=== PATIENT | female | born 1945 | race Native Hawaiian/Other Pacific Islander ===

== ENCOUNTER 2016-08-21 13:53 | Outpatient (CLI) | payer MEDICARE, MEDICAID | END 2016-08-21 13:54 | disposition home or self-care (01) | DX: G47.33 Obstructive sleep apnea (adult) (pediatric) (principal) | CPT/HCPCS: 99213; G0463 ==

== ENCOUNTER 2016-11-06 16:11 | Outpatient (CLI) | payer MEDICARE, MEDICAID | END 2016-11-06 16:12 | disposition home or self-care (01) | DX: M17.11 Unilateral primary osteoarthritis, right knee (principal) ==

== ENCOUNTER 2017-01-21 14:26 | Outpatient (CLI) | payer MEDICARE, MEDICAID | END 2017-01-21 14:27 | disposition home or self-care (01) | LOC: SC 14:26 | PROVIDERS: ATTEND Internal Medicine Pulmonary Disease | DX: G47.33 Obstructive sleep apnea (adult) (pediatric) (principal) | CPT/HCPCS: 99213; G0463; 99212 ==

== ENCOUNTER 2017-02-08 19:56 | Outpatient (CLI) | payer MEDICARE, MEDICAID ==
--- NOTE | 2017-02-08 21:24 | Ultrasound Preliminary Report ---
Exam: US Abdomen Complete IMPRESSION: 1. No acute abnormalities. 2. Mild fatty change in the liver with stable superficial cyst, medial left lobe. 3. Atrophic [place] kidneys with unremarkable right lower quadrant renal transplant. [facility] SITE ID: [id number]
--- NOTE | 2017-02-08 21:25 | Ultrasound Report ---
EXAM: ABDOMEN ULTRASOUND EXAM DATE: 02/08/2017 08:37 PM. CLINICAL HISTORY: Abdominal distention and bloating. COMPARISON: 02/16/2014. TECHNIQUE: Real-time scanning was performed with static images obtained. FINDINGS: Liver: Normal in size. Mildly echogenic echotexture. Superficial cyst, medial left lobe, 1.9 x 1.5 x 1.3 cm. 12.3 cm. Main portal vein flow: Hepatopetal. Gallbladder: Normal. No stones, wall thickening, or sonographic Alexander's sign. Biliary System: Common bile duct measures 6 mm. No intrahepatic or extrahepatic ductal dilatation. Pancreas: Visualized portion is unremarkable. Kidneys: Right: 7.5 cm longitudinally. Atrophic with echogenic cortex. Left: 7.9 cm longitudinally. Atrophic with echogenic cortex. Lateral cyst measures 3.1 x 2.3 x 2.9 cm . Right lower quadrant transplant: 10.7 x 5.0 x 5.1 cm, with no hydronephrosis. Spleen: 8.4 x 8.1 x 4.3 cm. Normal in size and echotexture. Aorta and Inferior Vena Cava: The visualized portions are unremarkable. No free fluid. IMPRESSION: 1. No acute abnormalities. 2. Mild fatty change in the liver with stable superficial cyst, medial left lobe. 3. Atrophic [place] kidneys with unremarkable right lower quadrant renal transplant. [facility] Referring Provider Line: [phone] SITE ID: [id number]
== END 2017-02-08 19:57 | disposition home or self-care (01) ==
LOC: DI 19:56
PROVIDERS: ATTEND Internal Medicine Nephrology
DX: K76.0 Fatty (change of) liver, not elsewhere classified (principal); N26.1 Atrophy of kidney (terminal); Q61.01 Congenital single renal cyst; Z94.0 Kidney transplant status
CPT/HCPCS: 76700

== ENCOUNTER 2017-02-26 13:14 | Outpatient (CLI) | payer MEDICARE, MEDICAID | END 2017-02-26 13:15 | disposition home or self-care (01) | LOC: SC 13:14 | PROVIDERS: ATTEND Internal Medicine Pulmonary Disease | DX: G47.33 Obstructive sleep apnea (adult) (pediatric) (principal) | CPT/HCPCS: 99213; G0463; 99212 ==

== ENCOUNTER 2017-10-07 20:16 | Outpatient (CLI) | payer MEDICARE, MEDICAID | END 2017-10-07 23:59 | disposition critical access hospital (66) | LOC: EMS 20:16 | PROVIDERS: ATTEND Surgery | DX: R03.0 Elevated blood-pressure reading, without diagnosis of hypertension (principal); R06.02 Shortness of breath; R14.0 Abdominal distension (gaseous) | CPT/HCPCS: A0425; A0429 ==

== ENCOUNTER 2017-10-07 20:47 | Emergency (ER) | payer MEDICARE, MEDICAID ==
--- NOTE | 2017-10-07 22:14 | ED Physician Documentation ---
History of Present Illness - Stated complaint Stated Complaint: SOA - Chief complaint Chief Complaint: Resp - History obtained from History obtained from: Patient - History of Present Illness Timing: Today Pain level max: 0 Pain level now: 0 Improved by: no ameliorating factors Worsened by: no exacerbating factors - Additonal information Additional information: at about 8 pm, noted blood pressure was 199/107 tonight (was taking this as a routine). she then noted abdominal bloating, belly felt very heavy...bloated...hard time breathing (per patient). Review of Systems Constitutional: reports: Reviewed and negative Eyes: reports: Reviewed and negative Cardiac: reports: Reviewed and negative Respiratory: reports: Dyspnea. denies: Cough GI: reports: Abdominal Swelling. denies: Abdominal Pain, Nausea, Vomiting, Constipation, Diarrhea : denies: Dysuria, Frequency Neurologic: reports: Reviewed and negative PD PAST MEDICAL HISTORY - Past Medical History Cardiovascular: Hypertension, High cholesterol : Renal insuffiency Musculoskeletal: Gout Other Past Medical History: Kidney transplant - Past Surgical History Past Surgical History: Yes - Present Medications Home Medications: Ambulatory Orders Medication Instructions Recorded Confirmed Aspirin [Aspir 81] 81 mg PO DAILY 03/06/13 02/06/16 Mycophenolate Sodium [Myfortic] 180 mg PO BID 03/06/13 02/06/16 PredniSONE [PredniSONE INTENSOL] 5 mg PO DAILY 03/06/13 02/06/16 Tacrolimus [Hecoria] 0.5 mg PO DAILY 03/06/13 02/06/16 Carvedilol 25 mg PO BID 10/09/13 02/06/16 Allopurinol 300 mg PO DAILY 12/13/14 02/06/16 Pravastatin Sodium 20 mg PO QPM 12/13/14 02/06/16 Losartan [Cozaar] 50 mg PO DAILY 12/26/15 02/06/16 hydrALAZINE [Apresoline] 50 mg PO BID 12/26/15 02/06/16 Ciprofloxacin HCl [Cipro] 500 mg PO BID PRN 02/05/16 02/05/16 Doxazosin [Cardura] 5 mg BID 02/05/16 02/05/16 Carvedilol [Coreg] 25 mg PO DAILY 10/07/17 10/07/17 Doxazosin [Cardura] 4 mg PO DAILY 10/07/17 10/07/17 Losartan [Cozaar] 100 mg PO DAILY 10/07/17 10/07/17 Mycophenolate Sodium [Myfortic] 180 mg PO DAILY 10/07/17 10/07/17 Pravastatin [Pravachol] 20 mg PO DAILY 10/07/17 10/07/17 PredniSONE [PredniSONE INTENSOL] 5 mg PO DAILY 10/07/17 10/07/17 Tacrolimus [Prograf] 5 mg ORAL DAILY 10/07/17 10/07/17 hydrALAZINE [Apresoline] 25 mg PO QID 10/07/17 10/07/17 - Allergies Allergies/Adverse Reactions: Allergies Allergy/AdvReac Type Severity Reaction Status Date / Time Sulfa (Sulfonamide Allergy Mild Rash Verified 12/26/15 02:26 Antibiotics) - Social History Does the pt smoke?: No Smoking Status: Never smoker Does the pt drink ETOH?: No Does the pt have substance abuse?: No - Immunizations Immunizations are current?: Yes - POLST POLST Status: Full Code PD ED PE NORMAL - Vitals Vital signs reviewed: Yes - General General: Alert and oriented X 3, No acute distress, Well developed/nourished - HEENT HEENT: Moist mucous membranes - Neck Neck: Supple, no meningeal sign - Cardiac Cardiac: RRR, No murmur, No gallop, No rub - Respiratory Respiratory: No respiratory distress, Clear bilaterally - Abdomen Abdomen: Normal bowel sounds, Soft, Non tender, Non distended, No organomegaly - Back Back: No CVA TTP - Derm Derm: No rash - Extremities Extremities: No edema Results - Vitals Vitals: Oxygen O2 Source Room air - EKG (time done) No standard instances Rate: Rate (enter#) (70) Rhythm: NSR [place]: Normal Intervals: Normal [place] QRS: Normal Ischemia: Normal ST segments - Labs Labs: Microbiology 10/07/17 21:11 Urine Culture - Final Urine,Clean Catch Escherichia Coli Laboratory Tests 10/07/17 10/07/17 10/07/17 21:11 22:47 22:47 WBC 6.7 RBC 4.15 L Hgb 12.8 Hct 39.9 MCV 96.1 MCH 31.0 MCHC 32.2 RDW 13.7 Plt Count 182 MPV 8.6 Neut # 5.3 Lymph # 0.7 L [place] # 0.5 Eos # 0.1 Baso # 0.0 Absolute Nucleated RBC 0.01 Nucleated RBC % 0.1 Sodium 139 Potassium 4.2 Chloride 110 Carbon Dioxide 22 Anion Gap 7.0 BUN 29 H Creatinine 1.0 Estimated GFR (MDRD) 54 L Glucose 124 H Calcium 9.3 Total Bilirubin 0.4 AST 23 ALT 22 Alkaline Phosphatase 51 B-Natriuretic Peptide Total Protein 6.3 L Albumin 3.7 Globulin 2.6 Albumin/Globulin Ratio 1.4 Lipase 37 Urine Color LT. YELLOW Urine Clarity CLOUDY Urine pH 5.5 Ur Specific [place] <=1.005 Urine Protein NEGATIVE Urine Glucose (UA) NEGATIVE Urine Ketones NEGATIVE Urine Occult Blood NEGATIVE Urine Nitrite NEGATIVE Urine Bilirubin NEGATIVE Urine Urobilinogen 0.2 (NORMAL) Ur Leukocyte Esterase MODERATE H Urine RBC 0-5 Urine WBC 6-10 H Urine WBC Clumps PRESENT Ur Squamous Epith Cells FEW Squamous Urine Bacteria Few Ur Microscopic Review INDICATED Urine Culture Comments INDICATED 10/07/17 22:47 WBC RBC Hgb Hct MCV MCH MCHC RDW Plt Count MPV Neut # Lymph # [place] # Eos # Baso # Absolute Nucleated RBC Nucleated RBC % Sodium Potassium Chloride Carbon Dioxide Anion Gap BUN Creatinine Estimated GFR (MDRD) Glucose Calcium Total Bilirubin AST ALT Alkaline Phosphatase B-Natriuretic Peptide 215 H Total Protein Albumin Globulin Albumin/Globulin Ratio Lipase Urine Color Urine Clarity Urine pH Ur Specific [place] Urine Protein Urine Glucose (UA) Urine Ketones Urine Occult Blood Urine Nitrite Urine Bilirubin Urine Urobilinogen Ur Leukocyte Esterase Urine RBC Urine WBC Urine WBC Clumps Ur Squamous Epith Cells Urine Bacteria Ur Microscopic Review Urine Culture Comments - Rads (name of study) abd. series (xrays) Radiology: Prelim report reviewed, See rad report PD MEDICAL DECISION MAKING - ED course Complexity details: reviewed results, re-evaluated patient, considered differential, d/w patient Departure - Departure Disposition: 01 Home, Self Care Clinical Impression: Kidney transplant recipient, Hypertension Condition: Good Instructions: ED HTN Established Follow-Up: Vivek Lee MD [Primary Care Provider] - Discharge Date/Time: 10/08/17 04:32
[2017-10-07 22:41] LABS: BILIRUBIN,URINE NEGATIVE (NEGATIVE); GLUCOSE, URINE (UA) NEGATIVE (NEGATIVE); KETONES,URINE (UA) NEGATIVE (NEGATIVE); LEUKOCYTE ESTERASE, URINE MODERATE (NEGATIVE); NITRITE,URINE NEGATIVE (NEGATIVE); OCCULT BLOOD,URINE NEGATIVE (NEGATIVE); PH,URINE 5.5 PH (5.0-7.5); PROTEIN,URINE NEGATIVE (NEGATIVE); UROBILINOGEN,URINE 0.2 (NORMAL) E.U./dL (NORMAL)
[2017-10-07 22:42] LABS: CLARITY,URINE CLOUDY (CLEAR)
[2017-10-07 22:53] LABS: BACTERIA,URINE Few /HPF (None Seen); RBC,URINE 0-5 /HPF (0-5); SQUAMOUS EPITHELIAL CELL,UR FEW Squamous (<= Few); WBC CLUMPS,URINE PRESENT
[2017-10-07 22:55] LABS: BASOPHILS % (AUTO) 0.7 %; EOSINOPHILS # (AUTO) 0.1 10^3/uL (0.0-0.7); EOSINOPHILS % (AUTO) 1.5 %; HGB - HEMOGLOBIN 12.8 g/dL (12.0-16.0); LYMPHOCYTES # (AUTO) 0.7 10^3/uL (1.5-3.5); LYMPHOCYTES % (AUTO) 11.1 %; MEAN CORPUSCULAR HGB CONC 32.2 g/dL (32.0-36.0); MEAN CORPUSCULAR VOLUME 96.1 fL (81.0-99.0); MEAN PLATELET VOLUME 8.6 fL (7.9-10.8); MONOCYTES # (AUTO) 0.5 10^3/uL (0.0-1.0); MONOCYTES % (AUTO) 6.9 %; NEUTROPHILS # (AUTO) 5.3 10^3/uL (1.5-6.6); NEUTROPHILS % (AUTO) 79.8 %; PLT - PLATELET COUNT 182 10^3/uL (130-450); RED BLOOD COUNT 4.15 10^6/uL (4.20-5.40); RED CELL DISTRIBUTION WIDTH 13.7 % (12.0-15.0); WHITE BLOOD COUNT 6.7 x10^3/uL (4.8-10.8)
[2017-10-07 23:08] LABS: ALBUMIN 3.7 g/dL (3.2-5.5); ALBUMIN/GLOBULIN RATIO 1.4 (1.0-2.2); BILIRUBIN,TOTAL 0.4 mg/dL (0.2-1.0); CALCIUM 9.3 mg/dL (8.5-10.3); TOTAL PROTEIN 6.3 g/dL (6.7-8.2)
--- NOTE | 2017-10-07 23:16 | XRAY Report ---
EXAM: ABDOMINAL SERIES AND PA CHEST EXAM DATE: 10/07/2017 11:04 PM. CLINICAL HISTORY: Abdominal distention. COMPARISON: Chest 02/05/2016. TECHNIQUE: 2 views abdomen and 1 view chest. FINDINGS: Cardiomegaly. New right upper lobe 9 mm dense nodular opacity, could represent a new pulmon bharat nodule. Follow-up is recommended. No pleural effusion or pneumothorax. Nonobstructive nonspecific bowel gas pattern. Stool volume is within normal limits. No evidence for f ree air. IMPRESSION: New right upper lobe 9 mm dense nodular opacity, could represent a new pulmonary nodule. Follow-up is recommended. No acute abdominal findings seen. [facility] Referring Provider Line: [phone] SITE ID: [id number]
--- NOTE | 2017-10-07 23:16 | XRAY Preliminary Report ---
Exam: XR ABDOMEN ACUTE IMPRESSION: New right upper lobe 9 mm dense nodular opacity, could represent a new pulmonary nodule. Follow-up is recommended. No acute abdominal findings seen. [facility] SITE ID: [id number]
[2017-10-08 04:32] VITALS: BP 168/78
== END 2017-10-08 04:32 | disposition home or self-care (01) ==
LOC: EDUNIT# → SUPCPDRO 20:47 → ED 20:47
DX: I10 Essential (primary) hypertension (principal); R19.00 Intra-abdominal and pelvic swelling, mass and lump, unspecified site; E78.00 Pure hypercholesterolemia, unspecified; R94.31 Abnormal electrocardiogram [ECG] [EKG]; Z94.0 Kidney transplant status; Z79.82 Long term (current) use of aspirin
CPT/HCPCS: 36415; 74022; 80053; 81001; 81003; 83690; 83880; 85025; 87077; 87086; 93005; 99284

== ENCOUNTER 2018-03-03 23:58 | Outpatient (CLI) | payer MEDICARE, MEDICAID | END 2018-03-03 23:59 | disposition critical access hospital (66) | LOC: EMS 23:58 | PROVIDERS: ATTEND Surgery | DX: R10.9 Unspecified abdominal pain (principal) | CPT/HCPCS: A0425; A0429 ==

== ENCOUNTER 2018-03-04 00:14 | Emergency (ER) | payer MEDICARE, MEDICAID ==
[2018-03-04 00:55] LABS: BILIRUBIN,URINE NEGATIVE (NEGATIVE); GLUCOSE, URINE (UA) NEGATIVE (NEGATIVE); KETONES,URINE (UA) NEGATIVE (NEGATIVE); LEUKOCYTE ESTERASE, URINE SMALL (NEGATIVE); NITRITE,URINE NEGATIVE (NEGATIVE); OCCULT BLOOD,URINE NEGATIVE (NEGATIVE); PH,URINE 6.5 PH (5.0-7.5); PROTEIN,URINE NEGATIVE (NEGATIVE); UROBILINOGEN,URINE 0.2 (NORMAL) E.U./dL (NORMAL)
[2018-03-04 00:56] LABS: BASOPHILS # (AUTO) 0.1 10^3/uL (0.0-0.1); BASOPHILS % (AUTO) 1.8 %; EOSINOPHILS # (AUTO) 0.1 10^3/uL (0.0-0.7); EOSINOPHILS % (AUTO) 1.4 %; HGB - HEMOGLOBIN 13.9 g/dL (12.0-16.0); LYMPHOCYTES # (AUTO) 0.5 10^3/uL (1.5-3.5); LYMPHOCYTES % (AUTO) 7.4 %; MEAN CORPUSCULAR HEMOGLOBIN 32.5 pg (27.0-31.0); MEAN CORPUSCULAR HGB CONC 33.9 g/dL (32.0-36.0); MEAN CORPUSCULAR VOLUME 95.9 fL (81.0-99.0); MEAN PLATELET VOLUME 8.9 fL (7.9-10.8); MONOCYTES # (AUTO) 0.3 10^3/uL (0.0-1.0); MONOCYTES % (AUTO) 3.5 %; NEUTROPHILS # (AUTO) 6.2 10^3/uL (1.5-6.6); NEUTROPHILS % (AUTO) 85.9 %; PLT - PLATELET COUNT 171 10^3/uL (130-450); RED BLOOD COUNT 4.29 10^6/uL (4.20-5.40); RED CELL DISTRIBUTION WIDTH 13.3 % (12.0-15.0); WHITE BLOOD COUNT 7.3 x10^3/uL (4.8-10.8)
[2018-03-04 01:03] LABS: BACTERIA,URINE None Seen /HPF (None Seen); CLARITY,URINE CLEAR (CLEAR); RBC,URINE None Seen /HPF (0-5); SQUAMOUS EPITHELIAL CELL,UR NONE SEEN (<= Few)
[2018-03-04 01:07] LABS: ALBUMIN 3.6 g/dL (3.2-5.5); ALBUMIN/GLOBULIN RATIO 1.2 (1.0-2.2); BILIRUBIN,TOTAL 0.7 mg/dL (0.2-1.0); CALCIUM 9.2 mg/dL (8.5-10.3); TOTAL PROTEIN 6.7 g/dL (6.7-8.2)
--- NOTE | 2018-03-04 01:13 | ED Physician Documentation ---
History of Present Illness - Stated complaint Stated Complaint: SOA, NAUSEA, ABD DISTENDED - Chief complaint Chief Complaint: Cardiac - History obtained from History obtained from: Patient - History of Present Illness Timing: Enter time (21:00), Today Pain level now: 3 Improved by: no ameliorating factors Worsened by: dizziness is worse with movement, but other symptoms have no obvious exacerbating factors - Additonal information Additional information: c/o upper abdominal and lower chest discomfort, sensation of "bloating" (per patient). mild dizziness with ambulation and movement. Mild nausea but no vomiting. had similar symptoms in September, T+R from this ED at that time. Review of Systems Constitutional: reports: Reviewed and negative Cardiac: reports: Chest pain / pressure. denies: Palpitations, Pedal edema, Calf pain Respiratory: reports: Reviewed and negative GI: reports: Abdominal Pain, Nausea. denies: Vomiting, Constipation, Diarrhea : denies: Dysuria, Frequency Skin: reports: Reviewed and negative Musculoskeletal: reports: Reviewed and negative Neurologic: reports: Reviewed and negative PD PAST MEDICAL HISTORY - Past Medical History Past Medical History: Yes Cardiovascular: Hypertension, High cholesterol : Renal insuffiency Musculoskeletal: Gout - Past Surgical History Past Surgical History: Yes - Present Medications Home Medications: Ambulatory Orders Medication Instructions Recorded Confirmed Aspirin [Aspir 81] 81 mg PO DAILY 03/06/13 03/04/18 Mycophenolate Sodium [Myfortic] 180 mg PO BID 03/06/13 03/04/18 Allopurinol 300 mg PO DAILY 12/13/14 03/04/18 hydrALAZINE [Apresoline] 50 mg PO BID 12/26/15 03/04/18 Carvedilol [Coreg] 25 mg PO DAILY 10/07/17 03/04/18 Losartan [Cozaar] 100 mg PO DAILY 10/07/17 03/04/18 Pravastatin [Pravachol] 20 mg PO DAILY 10/07/17 03/04/18 PredniSONE [PredniSONE INTENSOL] 5 mg PO DAILY 10/07/17 03/04/18 Tacrolimus [Prograf] 5 mg ORAL BID 10/07/17 03/04/18 - Allergies Allergies/Adverse Reactions: Allergies Allergy/AdvReac Type Severity Reaction Status Date / Time Sulfa (Sulfonamide Allergy Mild Rash Verified 03/04/18 01:05 Antibiotics) - Social History Does the pt smoke?: No Smoking Status: Never smoker Does the pt drink ETOH?: No Does the pt have substance abuse?: No - Immunizations Immunizations are current?: Yes - POLST POLST Status: Full Code PD ED PE NORMAL - Vitals Vital signs reviewed: Yes - General General: Alert and oriented X 3, No acute distress, Well developed/nourished - HEENT HEENT: PERRL, EOMI, Moist mucous membranes - Cardiac Cardiac: RRR, No murmur - Respiratory Respiratory: No respiratory distress, Clear bilaterally - Abdomen Abdomen: Normal bowel sounds, Soft, Non tender, Non distended, No organomegaly - Back Back: No CVA TTP - Derm Derm: Normal color, Warm and dry, No rash - Extremities Extremities: No edema - Neuro Neuro: Alert and oriented X 3, team automobile assembler 2-12 intact, No motor deficit, No sensory deficit, Normal speech Eye Opening: Spontaneous Motor: Obeys Commands Verbal: Oriented GCS Score: 15 Results - Vitals Vitals: Vital Signs - 24 hr 03/04/18 03/04/18 03/04/18 00:15 00:53 01:01 Temperature 36.2 C L Heart Rate 75 80 75 Respiratory 18 23 16 Rate Blood Pressure 163/74 H 167/74 H 159/93 H Blood Pressure 159/93 H [Left] O2 Saturation 96 97 97 03/04/18 03/04/18 03/04/18 01:40 02:36 03:37 Temperature 36.4 C L 36.4 C L Heart Rate 67 74 72 Respiratory 16 14 16 Rate Blood Pressure 177/82 H 147/64 H 146/74 H Blood Pressure [Left] O2 Saturation 95 97 99 Oxygen O2 Source Room air - EKG (time done) No standard instances Rate: Rate (enter#) (75) Rhythm: NSR [place]: Normal Intervals: Normal [place] QRS: Normal Ischemia: Normal ST segments - Labs Labs: Microbiology 03/04/18 00:32 Urine Culture - Preliminary Urine,Clean Catch CULTURE IN PROGRESS. RESULTS TO FOLLOW. Laboratory Tests 03/04/18 03/04/18 03/04/18 00:32 00:40 00:40 WBC 7.3 RBC 4.29 Hgb 13.9 Hct 41.2 MCV 95.9 MCH 32.5 H MCHC 33.9 RDW 13.3 Plt Count 171 MPV 8.9 Neut # (Auto) 6.2 Lymph # (Auto) 0.5 L [place] # (Auto) 0.3 Eos # (Auto) 0.1 Baso # (Auto) 0.1 Absolute Nucleated RBC 0.00 Nucleated RBC % 0.0 Sodium 136 Potassium 4.1 Chloride 106 Carbon Dioxide 22 Anion Gap 8.0 BUN 28 H Creatinine 1.0 Estimated GFR (MDRD) 54 L Glucose 151 H Calcium 9.2 Total Bilirubin 0.7 AST 32 ALT 26 Alkaline Phosphatase 61 Troponin I Total Protein 6.7 Albumin 3.6 Globulin 3.1 Albumin/Globulin Ratio 1.2 Lipase 59 H Urine Color LT. YELLOW Urine Clarity CLEAR Urine pH 6.5 Ur Specific [place] <=1.005 Urine Protein NEGATIVE Urine Glucose (UA) NEGATIVE Urine Ketones NEGATIVE Urine Occult Blood NEGATIVE Urine Nitrite NEGATIVE Urine Bilirubin NEGATIVE Urine Urobilinogen 0.2 (NORMAL) Ur Leukocyte Esterase SMALL H Urine RBC None Seen Urine WBC 0-3 Ur Squamous Epith Cells NONE SEEN Urine Bacteria None Seen Ur Microscopic Review INDICATED Urine Culture Comments INDICATED 03/04/18 00:40 WBC RBC Hgb Hct MCV MCH MCHC RDW Plt Count MPV Neut # (Auto) Lymph # (Auto) [place] # (Auto) Eos # (Auto) Baso # (Auto) Absolute Nucleated RBC Nucleated RBC % Sodium Potassium Chloride Carbon Dioxide Anion Gap BUN Creatinine Estimated GFR (MDRD) Glucose Calcium Total Bilirubin AST ALT Alkaline Phosphatase Troponin I < 0.04 Total Protein Albumin Globulin Albumin/Globulin Ratio Lipase Urine Color Urine Clarity Urine pH Ur Specific [place] Urine Protein Urine Glucose (UA) Urine Ketones Urine Occult Blood Urine Nitrite Urine Bilirubin Urine Urobilinogen Ur Leukocyte Esterase Urine RBC Urine WBC Ur Squamous Epith Cells Urine Bacteria Ur Microscopic Review Urine Culture Comments - Rads (name of study) acute abd. xrays Radiology: Prelim report reviewed, See rad report PD MEDICAL DECISION MAKING - ED course Complexity details: reviewed old records, reviewed results, re-evaluated patient , considered differential, d/w patient ED course: given "GI cocktail" (maalox, viscous lidocaine, donnatol) and reported significant improvement in symptoms on reevaluation. - Sepsis Event Vital Signs: Vital Signs - 24 hr 03/04/18 03/04/18 03/04/18 00:15 00:53 01:01 Temperature 36.2 C L Heart Rate 75 80 75 Respiratory 18 23 16 Rate Blood Pressure 163/74 H 167/74 H 159/93 H Blood Pressure 159/93 H [Left] O2 Saturation 96 97 97 03/04/18 03/04/18 03/04/18 01:40 02:36 03:37 Temperature 36.4 C L 36.4 C L Heart Rate 67 74 72 Respiratory 16 14 16 Rate Blood Pressure 177/82 H 147/64 H 146/74 H Blood Pressure [Left] O2 Saturation 95 97 99 Oxygen O2 Source Room air Departure - Departure Disposition: 01 Home, Self Care Clinical Impression: Abdominal pain Qualifiers: Abdominal location: upper abdomen, unspecified Qualified Code(s): R10.10 - Upper abdominal pain, unspecified Condition: Good Instructions: ED Abdominal Pain Unkn Cause, ED Chest Pain Atypical Unkn Cause Follow-Up: Vivek Lee MD [Primary Care Provider] - Within 1 week Comments: You can try simethicone for the gas/bloating sensation (this is a common over- the-counter medication and does not require a prescription). I would also recommend you take omeprazole once per day for 1-2 weeks. Discharge Date/Time: 03/04/18 03:38
[2018-03-04] MEDS ORDERED: PHENobarb/HYOSCY/ATROPINE/SCOP 5 ML UDC PO STA (01:38)
[2018-03-04] MEDS ORDERED: MAG HYDROX/AL HYDROX/SIMETH 30 ML UDC PO STA (01:38)
[2018-03-04] MEDS ORDERED: LIDOCAINE VISCOUS 2% 15 ML UDC MM STA (01:39)
--- NOTE | 2018-03-04 03:03 | XRAY Report ---
Procedure Date: 03/04/2018 Accession Number: [id number] / [id number] Procedure: XR - Abdomen Acute CPT Code: FULL RESULT: EXAM: ABDOMINAL SERIES AND PA CHEST EXAM DATE: 03/04/2018 02:35 AM. CLINICAL HISTORY: Abdominal pain and distention. COMPARISON: ABDOMEN ACUTE 10/07/2017 CHEST 1 VIEW 02/05/2016. TECHNIQUE: 2 views abdomen and 1 view chest. FINDINGS: CHEST: Lungs/Pleura: Bronchial wall thickening. No alveolar consolidation or pleural effusion seen. No pneumothorax. Mediastinum: Within exam limitations, heart size is upper normal. Aortic atherosclerosis. ABDOMEN: Bowel Gas Pattern: No dilated loops or abnormal air-fluid levels. Free Air: None. Other: Postoperative changes in the abdomen. IMPRESSION: 1. No bowel obstruction seen. 2. Borderline heart size. 3. Bronchial wall thickening. This can be seen with bronchitis or reactive airways disease. [facility]
[2018-03-04 03:38] VITALS: BP 146/74
--- NOTE | 2018-03-08 08:06 | ED Physician Documentation ---
ED Addendum - Addendum Addendum: 03/08/18 08:05 Chart accessed for culture review. UA (+) culture e. coli (50K-100K). Recommend keflex 500mg PO TID x 5 days
== END 2018-03-04 03:38 | disposition home or self-care (01) ==
LOC: EDUNIT# → ED 00:14 → SUPCPDRO 00:14 → ED 03:38
DX: R10.10 Upper abdominal pain, unspecified (principal); I10 Essential (primary) hypertension; Z79.82 Long term (current) use of aspirin; Z79.52 Long term (current) use of systemic steroids; R91.8 Other nonspecific abnormal finding of lung field
CPT/HCPCS: 36415; 74022; 80053; 81001; 83690; 84484; 85025; 87086; 93005; 99283; 99285; A9270; 81003; 87181

== ENCOUNTER 2018-04-29 10:04 | Outpatient (CLI) | payer MEDICARE, MEDICAID | END 2018-04-29 10:05 | disposition home or self-care (01) | LOC: SC 10:04 | PROVIDERS: ATTEND Internal Medicine Pulmonary Disease | DX: G47.33 Obstructive sleep apnea (adult) (pediatric) (principal) | CPT/HCPCS: 99213; G0463; 99212 ==

== ENCOUNTER 2018-06-22 19:47 | Outpatient (CLI) | payer MEDICARE, MEDICAID | END 2018-06-22 19:48 | disposition critical access hospital (66) | LOC: EMS 19:47 | PROVIDERS: ATTEND Surgery | DX: R03.0 Elevated blood-pressure reading, without diagnosis of hypertension (principal); R06.02 Shortness of breath | CPT/HCPCS: A0425; A0429 ==

== ENCOUNTER 2018-06-22 20:06 | Emergency (ER) | payer MEDICARE, MEDICAID ==
--- NOTE | 2018-06-22 20:17 | ED Physician Documentation ---
PD HPI DYSPNEA - Stated complaint Stated Complaint: SOA/HTN - History obtained from History obtained from: Patient - History of Present Illness Timing - onset: Today (takes BP 3 times daily and noted it to be elevated highly this evening to 190s systolic. Feeling anxious and some dyspnea, upper abd bloating with it.) Timing - onset during: Rest Timing - duration: Hours (BP remained elevated for over an hour. Took extra dose of her BP med about an hour RESP THERAPIST.) Timing - details: Gradual onset, Still present Inciting event(s): No: Out of meds, URI Associated symptoms: Other (upper abd bloating feeling). No: Fever, Cough, Wheezing, Chest pain / discomfort Similar symptoms before: Diagnosis (HTN with elevations periodically) Recently seen: Not recently seen Review of Systems Constitutional: denies: Fever Nose: denies: Rhinorrhea / runny nose, Congestion Throat: denies: Sore throat Cardiac: reports: Pedal edema (if does not take diuetic). denies: Chest pain / pressure, Palpitations, Calf pain Respiratory: reports: Dyspnea. denies: Cough, Wheezing GI: denies: Abdominal Pain, Nausea, Vomiting, Diarrhea, Bloody / black stool : denies: Dysuria, Frequency Neurologic: reports: Generalized weakness. denies: Focal weakness, Numbness, Near syncope PD PAST MEDICAL HISTORY - Past Medical History Cardiovascular: Hypertension, High cholesterol : Renal insuffiency Musculoskeletal: Gout - Past Surgical History Past Surgical History: Yes - Present Medications Home Medications: Ambulatory Orders Medication Instructions Recorded Confirmed Aspirin [Aspir 81] 81 mg PO DAILY 03/06/13 03/04/18 Mycophenolate Sodium [Myfortic] 180 mg PO BID 03/06/13 03/04/18 Allopurinol 300 mg PO DAILY 12/13/14 03/04/18 hydrALAZINE [Apresoline] 50 mg PO BID 12/26/15 03/04/18 Carvedilol [Coreg] 25 mg PO DAILY 10/07/17 03/04/18 Losartan [Cozaar] 100 mg PO DAILY 10/07/17 03/04/18 Pravastatin [Pravachol] 20 mg PO DAILY 10/07/17 03/04/18 PredniSONE [PredniSONE INTENSOL] 5 mg PO DAILY 10/07/17 03/04/18 Tacrolimus [Prograf] 5 mg ORAL BID 10/07/17 03/04/18 Docusate Sodium 100 mg PO DAILY #30 capsule 06/22/18 Nitroglycerin 0.4 mg SL ONCE PRN #1 bottle 06/22/18 - Allergies Allergies/Adverse Reactions: Allergies Allergy/AdvReac Type Severity Reaction Status Date / Time Sulfa (Sulfonamide Allergy Mild Rash Verified 06/22/18 20:12 Antibiotics) - Social History Does the pt smoke?: No Smoking Status: Never smoker Does the pt drink ETOH?: No Does the pt have substance abuse?: No - Immunizations Immunizations are current?: Yes - POLST POLST Status: Full Code PD ED PE NORMAL - Vitals Vital signs reviewed: Yes - General General: Alert and oriented X 3, Well developed/nourished, Other (anxious) - HEENT HEENT: Pharynx benign - Neck Neck: Supple, no meningeal sign, No adenopathy, No JVD - Cardiac Cardiac: RRR, No murmur - Respiratory Respiratory: Clear bilaterally - Abdomen Abdomen: Soft, Non tender - Back Back: No CVA TTP - Derm Derm: Normal color, Warm and dry - Extremities Extremities: No deformity, No tenderness to palpate, Normal ROM s pain, No edema, No calf tenderness / cord - Neuro Neuro: Alert and oriented X 3, No motor deficit, No sensory deficit, Normal speech Eye Opening: Spontaneous Motor: Obeys Commands Verbal: Oriented GCS Score: 15 Results - Vitals Vitals: Vital Signs - 24 hr 06/22/18 06/22/18 06/23/18 20:14 22:07 00:34 Temperature 36.6 C Heart Rate 78 75 73 Respiratory 18 18 16 Rate Blood Pressure 175/80 H 184/98 H 147/71 H O2 Saturation 97 97 96 06/23/18 00:51 Temperature Heart Rate 102 H Respiratory 16 Rate Blood Pressure 115/73 O2 Saturation 96 Oxygen O2 Source Room air - EKG (time done) 20:13 Rate: Rate (enter#) (83) Rhythm: NSR [place]: Normal Intervals: Normal [place] QRS: Normal Ischemia: Normal ST segments. No: ST elevation c/w ischemia, ST depression - Labs Labs: Laboratory Tests 06/22/18 06/22/18 06/22/18 20:56 20:56 20:56 WBC 6.9 RBC 4.20 Hgb 13.4 Hct 40.3 MCV 95.9 MCH 31.9 H MCHC 33.3 RDW 13.5 Plt Count 152 MPV 8.2 Neut # (Auto) 5.3 Lymph # (Auto) 0.9 L [place] # (Auto) 0.6 Eos # (Auto) 0.1 Baso # (Auto) 0.1 Absolute Nucleated RBC 0.01 Nucleated RBC % 0.1 Sodium 136 Potassium 3.3 L Chloride 102 Carbon Dioxide 26 Anion Gap 8.0 BUN 27 H Creatinine 1.4 H Estimated GFR (MDRD) 37 L Glucose 121 H Calcium 8.9 Phosphorus 3.2 Magnesium 1.8 Total Bilirubin 0.6 AST 15 ALT 10 Alkaline Phosphatase 55 B-Natriuretic Peptide 129 H Total Protein 6.5 L Albumin 3.7 Globulin 2.8 Albumin/Globulin Ratio 1.3 Lipase 47 - Rads (name of study) chest Radiology: Prelim report reviewed (no acute) PD MEDICAL DECISION MAKING - ED course Complexity details: reviewed results, re-evaluated patient (still some anxious about BP going up again later, but was watched here awhile and it did not go up significantly. ), considered differential (she is very anxious about BP elevation. She says she feels upper abd bloating with it. Improved some with GI cocktail. Still with nausea after BP is lowering. She is cocnerned about BP spikes at times and had been told by her Electric Scoop Operator that an option could be PRN nitro, but had not had Rx as yet. ), d/w patient Departure - Departure Disposition: 01 Home, Self Care Clinical Impression: Elevated blood pressure reading, Abdominal bloating Hypertension Qualifiers: Hypertension type: secondary to other renal disorders Qualified Code(s): I15.1 - Hypertension secondary to other renal disorders Condition: Stable Record reviewed to determine appropriate education?: Yes Instructions: ED HTN Established Follow-Up: Vivek Lee MD [Primary Care Provider] - Jimbo Granados MD [Provider Admit Priv/Credential] - Prescriptions: Docusate Sodium 100 mg PO DAILY #30 capsule Nitroglycerin 0.4 mg SL ONCE PRN #1 bottle PRN Reason: Hypertensive Emergency Comments: Continue usual medications. Continue monitoring your blood pressure as you had been directed by your denier control operator and fig washer. If your blood pressure is very high and stays that way for an hour to then you could use the nitroglycerin as needed to get it to be a little bit lower at the time. Do not take it regularly. Follow-up with your fig washer and Dr. Granados regarding ongoing blood pressure management. For your stomach bloating, try docusate stool softener daily for the next several days to week and see if you are feeling better. Zofran if needed for nausea. Discharge Date/Time: 06/23/18 00:53
[2018-06-22] MEDS ORDERED: LIDOCAINE VISCOUS 2% 15 ML UDC MM STA (20:37)
[2018-06-22] MEDS ORDERED: MAG HYDROX/AL HYDROX/SIMETH 30 ML UDC PO STA (20:37)
--- NOTE | 2018-06-22 20:57 | XRAY Report ---
Reason: chest pain Procedure Date: 06/22/2018 Accession Number: [id number] / [id number] Procedure: XR - Chest 1 View X-Ray CPT Code: 86268 FULL RESULT: EXAM: CHEST RADIOGRAPHY EXAM DATE: 06/22/2018 08:48 PM. CLINICAL HISTORY: Chest pain. COMPARISON: CHEST 1 VIEW 02/05/2016 9:58 PM CHEST 2 VIEW PA/LAT 12/13/2014 11:57 AM. TECHNIQUE: 1 view. FINDINGS: Lungs/Pleura: No focal consolidation or evidence of edema. No pleural effusion or pneumothorax. Mediastinum: Unchanged borderline cardiomegaly. The aorta is mildly tortuous and contains atherosclerotic calcifications, as before. Other: The bones are unremarkable. IMPRESSION: Stable borderline cardiomegaly. No acute cardiopulmonary abnormality. [facility]
[2018-06-22 21:00] LABS: BASOPHILS # (AUTO) 0.1 10^3/uL (0.0-0.1); BASOPHILS % (AUTO) 0.9 %; EOSINOPHILS # (AUTO) 0.1 10^3/uL (0.0-0.7); EOSINOPHILS % (AUTO) 1.1 %; HGB - HEMOGLOBIN 13.4 g/dL (12.0-16.0); LYMPHOCYTES # (AUTO) 0.9 10^3/uL (1.5-3.5); MEAN CORPUSCULAR HEMOGLOBIN 31.9 pg (27.0-31.0); MEAN CORPUSCULAR HGB CONC 33.3 g/dL (32.0-36.0); MEAN CORPUSCULAR VOLUME 95.9 fL (81.0-99.0); MEAN PLATELET VOLUME 8.2 fL (7.9-10.8); MONOCYTES # (AUTO) 0.6 10^3/uL (0.0-1.0); MONOCYTES % (AUTO) 8.3 %; NEUTROPHILS # (AUTO) 5.3 10^3/uL (1.5-6.6); NEUTROPHILS % (AUTO) 76.7 %; PLT - PLATELET COUNT 152 10^3/uL (130-450); RED CELL DISTRIBUTION WIDTH 13.5 % (12.0-15.0); WHITE BLOOD COUNT 6.9 x10^3/uL (4.8-10.8)
[2018-06-22 21:14] LABS: ALBUMIN 3.7 g/dL (3.2-5.5); ALBUMIN/GLOBULIN RATIO 1.3 (1.0-2.2); BILIRUBIN,TOTAL 0.6 mg/dL (0.2-1.0); CALCIUM 8.9 mg/dL (8.5-10.3); CREATININE 1.4 mg/dL (0.4-1.0); MAGNESIUM 1.8 mg/dL (1.7-2.8); PHOSPHORUS 3.2 mg/dL (2.5-4.6); TOTAL PROTEIN 6.5 g/dL (6.7-8.2)
[2018-06-22] MEDS ORDERED: NITROGLYCERIN SL 0.4 MG TABLET SL STA (22:11)
[2018-06-22] MEDS ORDERED: ONDANSETRON ODT 4 MG TABLET TL STA (23:20)
[2018-06-22] MEDS ORDERED: DOCUSATE SODIUM 100 MG CAPSULE PO STA (23:21)
[2018-06-23] MEDS ORDERED: ONDANSETRON ODT 4 MG Prepack 2 TL PRN (00:26)
[2018-06-23 00:52] VITALS: BP 115/73
== END 2018-06-23 00:53 | disposition home or self-care (01) ==
LOC: EDUNIT# → EDBD → ED 20:06
DX: I15.1 Hypertension secondary to other renal disorders (principal); R14.0 Abdominal distension (gaseous); N28.9 Disorder of kidney and ureter, unspecified
CPT/HCPCS: 36415; 71045; 80053; 83690; 83735; 83880; 84100; 85025; 93005; 99283; A9270; Q0162

== ENCOUNTER 2018-09-12 00:29 | Outpatient (CLI) | payer MEDICARE, MEDICAID | END 2018-09-12 00:30 | disposition critical access hospital (66) | LOC: EMS 00:29 | PROVIDERS: ATTEND Surgery | DX: R06.00 Dyspnea, unspecified (principal); R25.8 Other abnormal involuntary movements | CPT/HCPCS: A0425; A0429 ==

== ENCOUNTER 2018-09-12 00:45 | Emergency (ER) | payer MEDICARE, MEDICAID ==
[2018-09-12 01:16] LABS: BASOPHILS # (AUTO) 0.1 10^3/uL (0.0-0.1); BASOPHILS % (AUTO) 1.1 %; EOSINOPHILS % (AUTO) 0.4 %; HGB - HEMOGLOBIN 13.7 g/dL (12.0-16.0); LYMPHOCYTES # (AUTO) 0.7 10^3/uL (1.5-3.5); LYMPHOCYTES % (AUTO) 8.8 %; MEAN CORPUSCULAR HEMOGLOBIN 31.5 pg (27.0-31.0); MEAN CORPUSCULAR VOLUME 95.5 fL (81.0-99.0); MEAN PLATELET VOLUME 8.5 fL (7.9-10.8); MONOCYTES # (AUTO) 0.3 10^3/uL (0.0-1.0); MONOCYTES % (AUTO) 3.4 %; NEUTROPHILS # (AUTO) 6.9 10^3/uL (1.5-6.6); NEUTROPHILS % (AUTO) 86.3 %; PLT - PLATELET COUNT 207 10^3/uL (130-450); RED BLOOD COUNT 4.34 10^6/uL (4.20-5.40); RED CELL DISTRIBUTION WIDTH 13.7 % (12.0-15.0)
--- NOTE | 2018-09-12 01:21 | ED Physician Documentation ---
PD HPI DYSPNEA - Stated complaint Stated Complaint: SOA - Chief complaint Chief Complaint: Resp - History obtained from History obtained from: Patient, EMS - History of Present Illness Timing - onset: Enter time (16:00), Today Timing - onset during: Rest Timing - details: Gradual onset, Waxing and waning Pain level now: 3 Associated symptoms: No: Fever, Cough, Hemoptysis, Wheezing, Chest pain / discomfort, Palpitations, Diaphoresis, Bilateral edema, Unilateral edema, Anxiety Similar symptoms before: No diagnosis - Additional information Additional information: BIBA. c/o tremulousness, abdominal bloating (predominately in epigastrium), elevated blood pressure, dyspnea. Similar presentations in the past without specific diagnosis Review of Systems Constitutional: reports: Reviewed and negative Cardiac: reports: Reviewed and negative Respiratory: reports: Dyspnea. denies: Cough, Wheezing GI: reports: Abdominal Pain, Abdominal Swelling. denies: Nausea, Vomiting, Constipation, Diarrhea : denies: Dysuria, Frequency PD PAST MEDICAL HISTORY - Past Medical History Past Medical History: Yes Cardiovascular: Hypertension, High cholesterol : Renal insuffiency Musculoskeletal: Gout - Past Surgical History Past Surgical History: Yes - Present Medications Home Medications: Ambulatory Orders Medication Instructions Recorded Confirmed Aspirin [Aspir 81] 81 mg PO DAILY 03/06/13 03/04/18 Mycophenolate Sodium [Myfortic] 180 mg PO BID 03/06/13 03/04/18 Allopurinol 300 mg PO DAILY 12/13/14 03/04/18 hydrALAZINE [Apresoline] 50 mg PO BID 12/26/15 03/04/18 Carvedilol [Coreg] 25 mg PO DAILY 10/07/17 03/04/18 Losartan [Cozaar] 100 mg PO DAILY 10/07/17 03/04/18 Pravastatin [Pravachol] 20 mg PO DAILY 10/07/17 03/04/18 PredniSONE [PredniSONE INTENSOL] 5 mg PO DAILY 10/07/17 03/04/18 Tacrolimus [Prograf] 5 mg ORAL BID 10/07/17 03/04/18 Docusate Sodium 100 mg PO DAILY #30 capsule 06/22/18 Nitroglycerin 0.4 mg SL ONCE PRN #1 bottle 06/22/18 Amoxicillin 500 mg PO BID #13 capsule 09/12/18 - Allergies Allergies/Adverse Reactions: Allergies Allergy/AdvReac Type Severity Reaction Status Date / Time Sulfa (Sulfonamide Allergy Mild Rash Verified 09/12/18 00:50 Antibiotics) - Social History Does the pt smoke?: No Smoking Status: Never smoker Does the pt drink ETOH?: No Does the pt have substance abuse?: No - Immunizations Immunizations are current?: Yes - POLST Patient has POLST: No POLST Status: Full Code PD ED PE NORMAL - Vitals Vital signs reviewed: Yes - General General: Alert and oriented X 3, Well developed/nourished, Other (appears anxious but otherwise NAD) - HEENT HEENT: Moist mucous membranes - Neck Neck: Supple, no meningeal sign - Cardiac Cardiac: RRR, No murmur - Respiratory Respiratory: No respiratory distress, Clear bilaterally - Abdomen Abdomen: Normal bowel sounds, Soft, Non tender, Non distended, No organomegaly - Derm Derm: Normal color, Warm and dry - Extremities Extremities: No edema - Neuro Neuro: Alert and oriented X 3 Results - Vitals Vitals: Oxygen O2 Source Room air - EKG (time done) No standard instances Rate: Rate (enter#) (78) Rhythm: NSR [place]: Normal Intervals: Normal [place] QRS: Normal Ischemia: Normal ST segments - Labs Labs: Microbiology 09/12/18 01:30 Urine Culture - Preliminary Urine,Clean Catch Escherichia Coli Laboratory Tests 09/12/18 09/12/18 09/12/18 01:00 01:00 01:03 WBC 8.0 RBC 4.34 Hgb 13.7 Hct 41.5 MCV 95.5 MCH 31.5 H MCHC 33.0 RDW 13.7 Plt Count 207 MPV 8.5 Neut # (Auto) 6.9 H Lymph # (Auto) 0.7 L [place] # (Auto) 0.3 Eos # (Auto) 0.0 Baso # (Auto) 0.1 Absolute Nucleated RBC 0.01 Nucleated RBC % 0.1 Sodium 136 Potassium 3.9 Chloride 101 Carbon Dioxide 24 Anion Gap 11.0 BUN 43 H Creatinine 1.4 H Estimated GFR (MDRD) 37 L Glucose 143 H Calcium 9.4 Total Bilirubin 0.8 AST 15 ALT 12 Alkaline Phosphatase 61 Total Protein 7.2 Albumin 3.9 Globulin 3.3 Albumin/Globulin Ratio 1.2 Lipase 48 Urine Color Urine Clarity Urine pH Ur Specific [place] Urine Protein Urine Glucose (UA) Urine Ketones Urine Occult Blood Urine Nitrite Urine Bilirubin Urine Urobilinogen Ur Leukocyte Esterase Urine RBC Urine WBC Ur Squamous Epith Cells Urine Bacteria Ur Microscopic Review Urine Culture Comments Influenza A (Rapid) Negative Influenza B (Rapid) Negative 09/12/18 01:30 WBC RBC Hgb Hct MCV MCH MCHC RDW Plt Count MPV Neut # (Auto) Lymph # (Auto) [place] # (Auto) Eos # (Auto) Baso # (Auto) Absolute Nucleated RBC Nucleated RBC % Sodium Potassium Chloride Carbon Dioxide Anion Gap BUN Creatinine Estimated GFR (MDRD) Glucose Calcium Total Bilirubin AST ALT Alkaline Phosphatase Total Protein Albumin Globulin Albumin/Globulin Ratio Lipase Urine Color YELLOW Urine Clarity HAZY Urine pH 6.0 Ur Specific [place] 1.010 Urine Protein NEGATIVE Urine Glucose (UA) NEGATIVE Urine Ketones NEGATIVE Urine Occult Blood NEGATIVE Urine Nitrite NEGATIVE Urine Bilirubin NEGATIVE Urine Urobilinogen 0.2 (NORMAL) Ur Leukocyte Esterase LARGE H Urine RBC None Seen Urine WBC 6-10 H Ur Squamous Epith Cells FEW Squamous Urine Bacteria Many H Ur Microscopic Review INDICATED Urine Culture Comments INDICATED Influenza A (Rapid) Influenza B (Rapid) PD MEDICAL DECISION MAKING - ED course Complexity details: reviewed old records, reviewed results, re-evaluated patient, considered differential, d/w patient ED course: reassuring EKG and blood tests (mildly elevated creatinine which is same as previous visit). UA suggests UTI and thus abx given and rx (in choosing abx, I considered allergy to sulfa, h/o renal transplant, and checked interactions with her anti-rejection medications. her GFR would allow for macrobid or full dose of amoxicillin, but it is close to cutoff that would contraindicate macrobid and necessitate lower dosing of amoxicillin. as she doesnt have UTI symptoms, the lower dose amoxicillin is given). on reevaluation after maalox (low dose), viscous lidocaine, and ativan, she is sleeping but easily wakes to verbal stimulation and she reports resolution of symptoms Departure - Departure Disposition: 01 Home, Self Care Clinical Impression: Dyspnea Hypertension Qualifiers: Hypertension type: unspecified Qualified Code(s): I10 - Essential (primary) hypertension Urinary tract infection Qualifiers: Urinary tract infection type: acute cystitis Hematuria presence: without hematuria Qualified Code(s): N30.00 - Acute cystitis without hematuria Condition: Good Instructions: ED Dyspnea Shortness of Breath, ED HTN Established, ED UTI Cystitis Female Follow-Up: Vivek Lee MD [Primary Care Provider] - Within 1 week Prescriptions: Amoxicillin 500 mg PO BID #13 capsule Discharge Date/Time: 09/12/18 05:00
[2018-09-12 01:28] LABS: ALBUMIN 3.9 g/dL (3.2-5.5); ALBUMIN/GLOBULIN RATIO 1.2 (1.0-2.2); BILIRUBIN,TOTAL 0.8 mg/dL (0.2-1.0); CALCIUM 9.4 mg/dL (8.5-10.3); CREATININE 1.4 mg/dL (0.4-1.0); TOTAL PROTEIN 7.2 g/dL (6.7-8.2)
[2018-09-12 01:46] LABS: BILIRUBIN,URINE NEGATIVE (NEGATIVE); GLUCOSE, URINE (UA) NEGATIVE (NEGATIVE); KETONES,URINE (UA) NEGATIVE (NEGATIVE); LEUKOCYTE ESTERASE, URINE LARGE (NEGATIVE); NITRITE,URINE NEGATIVE (NEGATIVE); OCCULT BLOOD,URINE NEGATIVE (NEGATIVE); PROTEIN,URINE NEGATIVE (NEGATIVE); UROBILINOGEN,URINE 0.2 (NORMAL) E.U./dL (NORMAL)
[2018-09-12] MEDS ORDERED: LIDOCAINE VISCOUS 2% 15 ML UDC MM STA (01:46)
[2018-09-12] MEDS ORDERED: MAG HYDROX/AL HYDROX/SIMETH 30 ML UDC PO STA (01:46)
[2018-09-12] MEDS ORDERED: LORazepam 0.5 MG TABLET PO STA (01:47)
[2018-09-12 01:48] LABS: CLARITY,URINE HAZY (CLEAR)
[2018-09-12 01:57] LABS: BACTERIA,URINE Many /HPF (None Seen); RBC,URINE None Seen /HPF (0-5); SQUAMOUS EPITHELIAL CELL,UR FEW Squamous (<= Few)
[2018-09-12] MEDS ORDERED: AMOXICILLIN 250 MG CAPSULE PO STA (04:49)
[2018-09-12 05:06] VITALS: BP 126/75
== END 2018-09-12 05:00 | disposition home or self-care (01) ==
LOC: EDUNIT# → ED 00:45
DX: R06.00 Dyspnea, unspecified (principal); I10 Essential (primary) hypertension; N30.00 Acute cystitis without hematuria; E78.00 Pure hypercholesterolemia, unspecified
CPT/HCPCS: 36415; 80053; 81001; 83690; 85025; 87086; 87181; 87275; 87276; 93005; 99283; 99285; A9270; 81003

== ENCOUNTER 2018-10-13 18:59 | Outpatient (CLI) | payer MEDICARE, MEDICAID | END 2018-10-13 19:00 | disposition short-term general hospital (02) | LOC: EMS 18:59 | PROVIDERS: ATTEND Surgery | DX: R07.89 Other chest pain (principal); R10.9 Unspecified abdominal pain | CPT/HCPCS: A0425; A0427 ==

== ENCOUNTER 2019-03-30 07:14 | Outpatient (CLI) | payer MEDICARE, MEDICAID | END 2019-03-30 07:15 | disposition EMS.NT | LOC: EMS 07:14 | PROVIDERS: ATTEND Surgery | DX: R09.89 Other specified symptoms and signs involving the circulatory and respiratory systems (principal) ==

== ENCOUNTER 2019-04-27 21:18 | Outpatient (CLI) | payer MEDICARE, MEDICAID | END 2019-04-27 21:19 | disposition critical access hospital (66) | LOC: EMS 21:18 | PROVIDERS: ATTEND Surgery | DX: R11.0 Nausea (principal); R68.89 Other general symptoms and signs | CPT/HCPCS: A0425; A0427 ==

== ENCOUNTER 2019-04-27 21:37 | Emergency (ER) | payer MEDICARE, MEDICAID ==
[2019-04-27] MEDS ORDERED: FAMOTIDINE 20 MG/2 ML VIAL IVP STA (22:12)
[2019-04-27] MEDS ORDERED: ONDANSETRON 4 MG/2 ML VIAL IVP STA (22:12)
[2019-04-27 22:28] LABS: HGB - HEMOGLOBIN 12.9 g/dL (12.0-16.0); MEAN CORPUSCULAR HEMOGLOBIN 31.9 pg (27.0-31.0); MEAN CORPUSCULAR VOLUME 96.5 fL (81.0-99.0); RED BLOOD COUNT 4.05 10^6/uL (4.20-5.40); RED CELL DISTRIBUTION WIDTH 12.7 % (12.0-15.0); WHITE BLOOD COUNT 9.5 x10^3/uL (4.8-10.8)
[2019-04-27 22:29] LABS: BASOPHILS % (AUTO) 0.3 %; EOSINOPHILS # (AUTO) 0.1 10^3/uL (0.0-0.7); EOSINOPHILS % (AUTO) 0.7 %; LYMPHOCYTES # (AUTO) 0.7 10^3/uL (1.5-3.5); LYMPHOCYTES % (AUTO) 7.7 %; MEAN PLATELET VOLUME 10.5 fL (7.9-10.8); MONOCYTES # (AUTO) 0.6 10^3/uL (0.0-1.0); MONOCYTES % (AUTO) 6.7 %; NEUTROPHILS % (AUTO) 84.2 %; PLT - PLATELET COUNT 172 10^3/uL (130-450)
--- NOTE | 2019-04-27 22:36 | XRAY Report ---
Reason: chest pain Procedure Date: 04/27/2019 Accession Number: [id number] / [id number] Procedure: XR - Chest 1 View X-Ray CPT Code: 07454 FULL RESULT: EXAM: CHEST RADIOGRAPHY EXAM DATE: 04/27/2019 10:22 PM. CLINICAL HISTORY: Chest pain. COMPARISON: ABDOMEN ACUTE 03/04/2018 2:09 AM. TECHNIQUE: 1 view. FINDINGS: Lungs/Pleura: No focal opacities evident. No pleural effusion. No pneumothorax. Mediastinum: Mild cardiomegaly. Atherosclerotic calcifications. Other: None. IMPRESSION: Mild cardiomegaly, but no evidence of acute cardiopulmonary disease. RADIA
[2019-04-27 22:46] LABS: ALBUMIN 3.6 g/dL (3.2-5.5); ALBUMIN/GLOBULIN RATIO 1.4 (1.0-2.2); BILIRUBIN,TOTAL 0.6 mg/dL (0.2-1.0); CREATININE 1.1 mg/dL (0.4-1.0); TOTAL PROTEIN 6.2 g/dL (6.7-8.2)
--- NOTE | 2019-04-27 23:57 | ED Physician Documentation ---
PD HPI ABD PAIN - Stated complaint Stated Complaint: HTN/NAUSEA - Chief complaint Chief Complaint: Abd Pain - History obtained from History obtained from: Patient - History of Present Illness Timing - onset: Today Timing - details: Abrupt onset, Other (6pm felt cold, dizzy and her blood pressure was high) Severity Comments: moderate Quality: Other (bloating of her stomach) Location: Epigastric Radiation: Other (none) Improved by: Other (nothing) Worsened by: Palpation Associated symptoms: Nausea, Dizzy. No: Fever, Vomiting, Hematemesis, Diarrhea, Constipation, Melena, Hematochezia, Dysuria, Hematuria, Chest pain, Near syncope / syncope Similar symptoms before: Other (has had this before and states she had a CT scan at [facility] this passed week but doesn't know the results.) Recently seen: Other ([facility]) - Treatment prior to arrival Treatment prior to arrival: none - Additional information Additional information: Pt is most concerned about her blood pressure, repeatedly stating that it was 200 systolic earlier today and improved after her meds. Her PCP told her if her blood pressure is high she needs to go to the ED. She however denies headache, weakness, numbness, speech changes, gait abnormality. She reported some blurred vision on arrival and felt cold. Denies fever. She states she just generally feels bloated and nauseous. Review of Systems Ten Systems: 10 systems reviewed and negative Constitutional: reports: Chills Eyes: reports: Other (blurred vision) Nose: reports: Reviewed and negative Throat: reports: Reviewed and negative Cardiac: denies: Chest pain / pressure Respiratory: denies: Dyspnea GI: reports: Abdominal Pain, Nausea. denies: Abdominal Swelling, Vomiting, Constipation, Diarrhea, Hematemesis, Bloody / black stool : reports: Reviewed and negative Skin: reports: Reviewed and negative Musculoskeletal: reports: Reviewed and negative Neurologic: denies: Focal weakness, Numbness, Difficulty speaking, Near syncope, Syncope, Confused, Altered mental status, Headache, Head injury, LOC Immunocompromised: reports: Reviewed and negative PD PAST MEDICAL HISTORY - Past Medical History Past Medical History: Yes Cardiovascular: Hypertension, High cholesterol : Renal insuffiency Musculoskeletal: Gout - Past Surgical History Past Surgical History: Yes - Present Medications Home Medications: Ambulatory Orders Medication Instructions Recorded Confirmed Aspirin [Aspir 81] 81 mg PO DAILY 03/06/13 03/04/18 Mycophenolate Sodium [Myfortic] 180 mg PO BID 03/06/13 03/04/18 Allopurinol 300 mg PO DAILY 12/13/14 03/04/18 hydrALAZINE [Apresoline] 50 mg PO BID 12/26/15 03/04/18 Carvedilol [Coreg] 25 mg PO DAILY 10/07/17 03/04/18 Losartan [Cozaar] 100 mg PO DAILY 10/07/17 03/04/18 Pravastatin [Pravachol] 20 mg PO DAILY 10/07/17 03/04/18 PredniSONE [PredniSONE INTENSOL] 5 mg PO DAILY 10/07/17 03/04/18 Tacrolimus [Prograf] 5 mg ORAL BID 10/07/17 03/04/18 Docusate Sodium 100 mg PO DAILY #30 capsule 06/22/18 Nitroglycerin 0.4 mg SL ONCE PRN #1 bottle 06/22/18 Amoxicillin 500 mg PO BID #13 capsule 09/12/18 - Allergies Allergies/Adverse Reactions: Allergies Allergy/AdvReac Type Severity Reaction Status Date / Time Sulfa (Sulfonamide Allergy Mild Rash Verified 09/12/18 00:50 Antibiotics) - Social History Does the pt smoke?: No Smoking Status: Never smoker Does the pt drink ETOH?: No Does the pt have substance abuse?: No - Immunizations Immunizations are current?: Yes - POLST Patient has POLST: No POLST Status: Full Code PD ED PE NORMAL - General General: Alert and oriented X 3, No acute distress, Well developed/nourished - HEENT HEENT: Atraumatic - Neck Neck: Supple, no meningeal sign - Cardiac Cardiac: RRR, No murmur, No gallop, No rub - Respiratory Respiratory: No respiratory distress, Clear bilaterally - Abdomen Abdomen: Normal bowel sounds, Soft, Non distended - Female Female : Deferred - Rectal Rectal: Deferred - Derm Derm: Normal color, Warm and dry, No rash - Extremities Extremities: No edema - Neuro Neuro: Alert and oriented X 3, [place] 2-12 intact, No motor deficit, No sensory deficit, Normal speech Eye Opening: Spontaneous Motor: Obeys Commands Verbal: Oriented GCS Score: 15 - Psych Psych: Normal mood, Normal affect PD ED PE EXPANDED - Abdomen Abdomen: Tender to palpation, Epigastric. No: Distended, Rebound, Guarding Results - Vitals Vitals: Vital Signs - 24 hr 04/27/19 04/27/19 04/27/19 21:35 22:00 23:16 Temperature 36.6 C Heart Rate 73 71 73 Respiratory 22 17 Rate Blood Pressure 154/83 H 155/50 H O2 Saturation 96 95 04/27/19 04/28/19 23:30 00:22 Temperature Heart Rate 71 71 Respiratory 20 18 Rate Blood Pressure 156/80 H 151/90 H O2 Saturation 95 100 Oxygen O2 Source Room air - EKG (time done) 21:49 Rate: Rate (enter#) (69) Rhythm: NSR [place]: Normal Intervals: QRS normal QRS: Normal Ischemia: Normal ST segments Computer interpretation: Agree with computer 00:03 Rate: Rate (enter#) (73) Rhythm: NSR [place]: Normal Intervals: Normal [place], QRS normal. No: Prolonged QT QRS: Normal Ischemia: Normal ST segments, Other (flatted t waves). No: ST elevation c/w ischemia Compare to prior EKG: Unchanged from prior EKG Computer interpretation: Agree with computer - Tele (time rhythm occurred) No standard instances Telemetry / rhythm strip: NSR - Labs Labs: Laboratory Tests 04/27/19 04/27/19 04/27/19 22:25 22:25 22:25 WBC 9.5 RBC 4.05 L Hgb 12.9 Hct 39.1 MCV 96.5 MCH 31.9 H MCHC 33.0 RDW 12.7 Plt Count 172 MPV 10.5 Neut # (Auto) 8.0 H Lymph # (Auto) 0.7 L [place] # (Auto) 0.6 Eos # (Auto) 0.1 Baso # (Auto) 0.0 Absolute Nucleated RBC 0.00 Nucleated RBC % 0.0 Sodium 138 Potassium 3.6 Chloride 104 Carbon Dioxide 24 Anion Gap 10.0 BUN 34 H Creatinine 1.1 H Estimated GFR (MDRD) 48 L Glucose 143 H Calcium 9.0 Total Bilirubin 0.6 AST 15 ALT 11 Alkaline Phosphatase 50 Troponin I High Sens 6.5 Total Protein 6.2 L Albumin 3.6 Globulin 2.6 Albumin/Globulin Ratio 1.4 Lipase 53 H Urine Color Urine Clarity Urine pH Ur Specific [place] Urine Protein Urine Glucose (UA) Urine Ketones Urine Occult Blood Urine Nitrite Urine Bilirubin Urine Urobilinogen Ur Leukocyte Esterase Urine RBC Urine WBC Ur Squamous Epith Cells Urine Bacteria Ur Microscopic Review Urine Culture Comments 04/28/19 00:15 WBC RBC Hgb Hct MCV MCH MCHC RDW Plt Count MPV Neut # (Auto) Lymph # (Auto) [place] # (Auto) Eos # (Auto) Baso # (Auto) Absolute Nucleated RBC Nucleated RBC % Sodium Potassium Chloride Carbon Dioxide Anion Gap BUN Creatinine Estimated GFR (MDRD) Glucose Calcium Total Bilirubin AST ALT Alkaline Phosphatase Troponin I High Sens Total Protein Albumin Globulin Albumin/Globulin Ratio Lipase Urine Color YELLOW Urine Clarity CLEAR Urine pH 6.5 Ur Specific [place] 1.010 Urine Protein NEGATIVE Urine Glucose (UA) NEGATIVE Urine Ketones NEGATIVE Urine Occult Blood NEGATIVE Urine Nitrite POSITIVE H Urine Bilirubin NEGATIVE Urine Urobilinogen 0.2 (NORMAL) Ur Leukocyte Esterase MODERATE H Urine RBC None Seen Urine WBC 4-5 Ur Squamous Epith Cells RARE Squamous Urine Bacteria Many H Ur Microscopic Review INDICATED Urine Culture Comments INDICATED PD MEDICAL DECISION MAKING - ED course Complexity details: reviewed old records, reviewed results, re-evaluated patient, considered differential, d/w patient ED course: ddx- gastritis, pyelonephritis, uti, diverticulitis, AAA, ACS 73 y/o F with vague symptoms of abdominal bloating and feeling cold. She has been very concerned about her blood pressure but it has been fairly normal here. She took her home meds here in the ED. Her abdominal exam is benign except mild mid abdominal tenderness. Her labs are normal. Repeat EKGs are nonischemic and her troponin is negative. She refused a CT scan because she states she had one in [facility] that was negative last week. Her UA is consistent with a UTI. I discussed this with her and she refused any antibiotics except amoxicillin because she states her doctor told her that's the only thing she can take. I again discussed that there are better antibiotics for UTIs and should could worsen if not given the right antibiotic but she still refuses. I advised her to call her primary care doctor tomorrow to discuss changing this to a different antibiotic and she agrees to contact them in the morning. She is not septic and appears well for discharge. Departure - Departure Disposition: Home, Self Care Clinical Impression: UTI (urinary tract infection) Qualifiers: Urinary tract infection type: site unspecified Hematuria presence: without hematuria Qualified Code(s): N39.0 - Urinary tract infection, site not specified Condition: Stable Record reviewed to determine appropriate education?: Yes Instructions: ED UTI Cystitis Female Follow-Up: Eloise Parmar ARNP [Primary Care Provider] - Tomorrow (call your doctor tomorrow to obtain a prescription for antibiotics. I feel you should be on a different antibiotic than amoxicillin but you were given one dose here since that is the only antibiotic you would accept.)
[2019-04-28 00:22] LABS: BILIRUBIN,URINE NEGATIVE (NEGATIVE); CLARITY,URINE CLEAR (CLEAR); GLUCOSE, URINE (UA) NEGATIVE (NEGATIVE); KETONES,URINE (UA) NEGATIVE (NEGATIVE); LEUKOCYTE ESTERASE, URINE MODERATE (NEGATIVE); NITRITE,URINE POSITIVE (NEGATIVE); OCCULT BLOOD,URINE NEGATIVE (NEGATIVE); PH,URINE 6.5 PH (5.0-7.5); PROTEIN,URINE NEGATIVE (NEGATIVE); UROBILINOGEN,URINE 0.2 (NORMAL) E.U./dL (NORMAL)
[2019-04-28 00:36] LABS: BACTERIA,URINE Many /HPF (None Seen); RBC,URINE None Seen /HPF (0-5); SQUAMOUS EPITHELIAL CELL,UR RARE Squamous (<= Few)
[2019-04-28] MEDS ORDERED: AMOXICILLIN 250 MG CAPSULE PO STA (00:43)
[2019-04-28 00:56] VITALS: BP 138/74
== END 2019-04-28 01:27 | disposition home or self-care (01) ==
LOC: EDUNIT# → ED 21:37
DX: N39.0 Urinary tract infection, site not specified (principal); R42 Dizziness and giddiness; I10 Essential (primary) hypertension; Z79.82 Long term (current) use of aspirin; G47.33 Obstructive sleep apnea (adult) (pediatric)
CPT/HCPCS: 36415; 71045; 80053; 81001; 83690; 84484; 85025; 87086; 87181; 93005; 96374; 99213; 99284; A9270; G0463; 81003; 99212

== ENCOUNTER 2019-04-28 11:05 | Outpatient (CLI) | payer MEDICARE, MEDICAID ==
--- NOTE | 2019-04-28 11:53 | SLEEP CARE CONSULTATION ---
Information from patient questionnaire entered by Neli Valladares. I have reviewed and concur with the information entered by Neli Valladares. This document represents the service I personally performed and the decisions made by me, Nneka Guaman MD, [facility]. History of Present Illness Previous diagnosis: Severe, Obstructive Sleep Apnea-Hypopnea Syndrome AHI: 31.3 Reason for CPAP/BiPAP follow up: annual Equipment type: CPAP Equipment obtained from: [employer] Prior sleep studies: Yes Year and Where: 2015 HPI additional information: HPI: Ms. Cabrera returned today for annual follow up of nasal CPAP therapy. She was diagnosed to have severe obstructive sleep apnea-hypopnea syndrome. The patient gets her supplies from [facility]. She wears a Resp[employer]ics DreamWear nasal cushion mask. She continues to use the device nightly and all through the night. The compliance report shows usage in 130 nights out of the past 180 nights, averaging 8.1 hours a night. The 50 days she did not use it was because she was out of supplies and [employer] would not send anymore. She complained of dry mouth but no particular problem with the device such as soreness on the face, epistaxis, nasal congestion or headache. She thinks that the pressure of 4 - 8 cmH2O is more comfortable than the previous 7 12 cmH2O. On the CPAP therapy she notices improvement in her sleep quality, and that she wakes up feeling fresher in the morning and more awake/alert during the day. The average residual AHI is 10.9 (10.2 last year); and air leak, 5 minute a night. The 90th percentile pressure is 7.3 cmH2O. CPAP Compliance Data - Data Reviewed with Patient Average duration of nightly device use: 8h 4m Compliance rate %: 71.7 Current pressure setting (cmH2O): 4-8 Humidity settin Heated hose settin Subjective Patient concerns: reports: aerophagia, air blowing in eyes, nasal congestion, dry mouth, nose, throat, other (headache) Current pressure setting perceived as: comfortable Initial [place] Sleepiness Scale score: 14 Current [place] Sleepiness Scale score: 7 Allergies and Home Medications Drug allergies reviewed: Yes Home medication list reviewed: Yes Allergy and home medication list: Current Medications: Myfortic Prograf Coreg Prednisone Losartan Potassium Hydralazine HCL Allopurinol Pravachol Aspirin EC Review of Systems Review of systems same as previous: Yes Physical Exam Weight: 175 lb Impression and Plan IMPRESSION: 1. Obstructive Sleep Apnea-Hypopnea Syndrome, severe, with the patient continuing to do well on nasal CPAP therapy. She has good compliance and significant clinical improvement. The current pressure appears slightly ineffective but comfortable. Overall, she is very satisfied with treatment and plans to continue with it long-term. The does not want the pressure increased. PLAN: 1. Continue with autoCPAP set between 4 - 8 cm H2O. 2. Try to lose weight 3. Increase the heated humidifier setting. The patient will take a look at the manual when she goes home. 4. Return in one year for follow up or earlier if there is any problem. I spent 100% of this [15][30] minute visit face to face with the patient with greater than 50% of this was spent time counseling the patient and coordination of care.
== END 2019-04-28 11:06 | disposition home or self-care (01) ==
LOC: SC 11:05
PROVIDERS: ATTEND Internal Medicine Pulmonary Disease
DX: G47.33 Obstructive sleep apnea (adult) (pediatric) (principal)
CPT/HCPCS: 99213; G0463; 99212

== ENCOUNTER 2019-05-12 14:53 | Outpatient (CLI) | payer MEDICARE, MEDICAID ==
[2019-05-12 19:34] LABS: HB2 TOTAL 13.8 g/dL; HEMOGLOBIN A1C 0.52 g/dL; HEMOGLOBIN A1C % 5.6 % (4.6-6.2)
== END 2019-05-12 23:59 | disposition home or self-care (01) ==
LOC: LAB.N 14:53
PROVIDERS: ATTEND Nurse Practitioner Gerontology
DX: R73.9 Hyperglycemia, unspecified (principal); E03.9 Hypothyroidism, unspecified
CPT/HCPCS: 36415; 83036; 84443

== ENCOUNTER 2019-07-20 13:32 | Outpatient (CLI) | payer MEDICARE, MEDICAID ==
--- NOTE | 2019-07-20 14:41 | XRAY Report ---
Reason: DYSPHAGIA Procedure Date: 07/20/2019 Accession Number: [id number] / [id number] Procedure: FL - Modified Barium Swallow W/SP CPT Code: Final Report FULL RESULT: EXAM: MODIFIED BARIUM SWALLOW EXAM DATE: 07/20/2019 02:29 PM. CLINICAL HISTORY: Dysphagia. COMPARISON: None. TECHNIQUE: Under the direction of speech pathology, patient swallowed various consistencies of barium under lateral fluoroscopic observation of the neck. Fluoroscopy Time: 29 seconds. Number of Images: 43. FINDINGS: Swallowing Mechanism: Normal oral phase and swallowing reflex. Airway Protection: Normal epiglottic motion. No episodes of tracheal penetration or aspiration with all consistencies of barium. Pharynx: Normal. No significant vallecular or piriform sinus contrast pooling. Other: None. IMPRESSION: Normal modified barium swallow. No aspiration identified. RADIA
== END 2019-07-20 13:33 | disposition home or self-care (01) ==
LOC: DI 13:32
PROVIDERS: ATTEND Otolaryngology
DX: R13.19 Other dysphagia (principal)
CPT/HCPCS: 74230

== ENCOUNTER 2020-08-29 14:11 | Outpatient (CLI) | payer MEDICARE, MEDICAID ==
--- NOTE | 2020-08-29 14:40 | SLEEP CARE CONSULTATION ---
Information from patient questionnaire entered by Joby Meade. I have reviewed and concur with the information entered by Joby Meade. This document represents the service I personally performed and the decisions made by me, Nneka Guaman MD, [facility]. History of Present Illness Service Date and Time: 08/29/2020 1411 Previous diagnosis: Severe, Obstructive Sleep Apnea-Hypopnea Syndrome AHI: 31.3 Reason for follow up: annual (Last seen 04/2019) Equipment type: CPAP Equipment obtained from: [facility] Prior sleep studies: Yes Year and Where: 2015 Merged with [facility] HPI additional information: HPI: Ms. Cabrera returned today for annual follow up of nasal CPAP therapy. She was diagnosed to have severe obstructive sleep apnea-hypopnea syndrome. The patient gets her supplies from [facility] (used to be [facility]). She wears a Respironics ResMed N30i mask (was [employer]ear nasal cushion mask). She continues to use the device nightly and all through the night. The compliance report shows usage in 329 nights out of the past 360 nights, averaging 7.7 hours a night. The 50 days she did not use it was because she was out of supplies and [facility] would not send anymore. She complained of dry mouth but no particular problem with the device such as soreness on the face, epistaxis, nasal congestion or headache. She thinks that the pressure of 4 - 8 cmH2O is more comfortable than the previous 7 12 cmH2O. On the CPAP therapy she notices improvement in her sleep quality, and that she wakes up feeling fresher in the morning and more awake/alert during the day. The average residual AHI is 10.1 (10.9 last year); and air leak, 1 minute a night. The 90th percentile pressure is 7.9 cmH2O. Sleep Study - Results Prior sleep studies: Yes Year and Where: 2015 CPAP Compliance Data - Data Reviewed with Patient Average duration of nightly device use: 7 h 37 min Compliance rate %: 91.7 Current pressure setting (cmH2O): 4-8 Humidity settin Heated hose settin Average residual AHI: 10.8 Average large leak: 1 min 30 sec Subjective Missed days of use due to: reports: travel Patient concerns: reports: nasal congestion, dry mouth, nose, throat Initial [place] Sleepiness Scale score: 14 (in 2016) Current [place] Sleepiness Scale score: 24 Allergies and Home Medications Drug allergies reviewed: Yes Home medication list reviewed: Yes Review of Systems Review of systems same as previous: Yes Physical Exam Vital signs obtained and entered by: To minimize the risk of COVID-19 exposure, detailed exam was not performed. Height: 4 ft 11 in Weight: 163 lb Weight change since last visit: -12 Body Mass Index: 32.9 BMI Classification: Obese Impression and Plan IMPRESSION: 1. Obstructive Sleep Apnea-Hypopnea Syndrome, severe, with the patient continuing to do well on nasal CPAP therapy. She has good compliance and significant clinical improvement. The current pressure appears slightly ineffective but comfortable. Overall, she is very satisfied with treatment and plans to continue with it long-term. The does not want the pressure increased. PLAN: 1. Continue with autoCPAP set between 4 - 8 cm H2O. 2. Try to lose weight 3. Increase the heated humidifier setting. The patient will take a look at the manual when she goes home. 4. Return in one year for follow up or earlier if there is any problem. Visit Type: In Office Time Spent with Patient (minutes): 20 Provider Statement: I spent 100% of the Face to Face Visit with the patient with greater than 50% spent counseling the patient and coordination of care.
== END 2020-08-29 14:12 | disposition home or self-care (01) ==
LOC: SC 14:11
PROVIDERS: ATTEND Internal Medicine Pulmonary Disease
DX: G47.33 Obstructive sleep apnea (adult) (pediatric) (principal); E66.9 Obesity, unspecified; Z68.32 Body mass index [BMI] 32.0-32.9, adult
CPT/HCPCS: 99213; G0463; 99212

== ENCOUNTER 2020-10-10 08:00 | Outpatient (CLI) | payer MEDICARE, MEDICAID ==
[2020-10-10 18:48] LABS: BILIRUBIN,URINE NEGATIVE (NEGATIVE); GLUCOSE, URINE (UA) NEGATIVE (NEGATIVE); KETONES,URINE (UA) TRACE mg/dL (NEGATIVE); LEUKOCYTE ESTERASE, URINE SMALL (NEGATIVE); NITRITE,URINE NEGATIVE (NEGATIVE); OCCULT BLOOD,URINE NEGATIVE (NEGATIVE); PH,URINE 5.5 PH (5.0-7.5); PROTEIN,URINE NEGATIVE (NEGATIVE); UROBILINOGEN,URINE 0.2 (NORMAL) E.U./dL (NORMAL)
[2020-10-10 18:54] LABS: CLARITY,URINE HAZY (CLEAR)
[2020-10-10 18:59] LABS: BACTERIA,URINE Rare /HPF (None Seen); MUCUS,URINE Few Strands; RBC,URINE None Seen /HPF (0-5); SQUAMOUS EPITHELIAL CELL,UR FEW Squamous (<= Few); WBC,URINE >25 /HPF (0-5)
== END 2020-10-10 23:59 | disposition home or self-care (01) ==
LOC: LAB.R 08:00
PROVIDERS: ATTEND Family Medicine
DX: N39.0 Urinary tract infection, site not specified (principal); Z94.0 Kidney transplant status
CPT/HCPCS: 81001; 87086

== ENCOUNTER 2021-03-23 08:00 | Outpatient (CLI) | payer MEDICARE, MEDICAID | END 2021-03-23 23:59 | disposition home or self-care (01) | LOC: LAB.N 08:00 | PROVIDERS: ATTEND Physician Assistant Medical | DX: R10.9 Unspecified abdominal pain (principal) | CPT/HCPCS: 87077; 87086; 87181 ==

== ENCOUNTER 2021-03-23 14:12 | Outpatient (CLI) | payer MEDICARE, MEDICAID ==
--- NOTE | 2021-03-23 16:18 | XRAY Report ---
PROCEDURE: Thoracic Spine 3 View INDICATIONS: ATRAUMATIC BACK PAIN TECHNIQUE: 3 views of the thoracic spine were acquired. COMPARISON: None. FINDINGS: Bones: No fractures or dislocations. No suspicious bony lesions. 12 pairs of ribs are noted, and a ppear intact where visualized. Multilevel degenerative disc space narrowing is present. Soft tissues: No paravertebral stripe thickening. Heart is enlarged. IMPRESSION: Degenerative changes. No visualized acute fracture or dislocation. However, occult injury cannot be e xcluded. Recommend short interval imaging follow-up in 7-10 days as clinically indicated for addition al evaluation. Reviewed by: Dia Mckee MD on 03/23/2021 4:17 PM PDT Approved by: Dia Mckee MD on 03/23/2021 4:17 PM PDT Station ID: [id number]
== END 2021-03-23 23:59 | disposition home or self-care (01) ==
LOC: DI.N 14:12
PROVIDERS: ATTEND Physician Assistant Medical
DX: M48.04 Spinal stenosis, thoracic region (principal); R10.9 Unspecified abdominal pain
CPT/HCPCS: 87077; 87086; 87181

== ENCOUNTER 2021-11-06 13:10 | Outpatient (CLI) | payer MEDICARE, MEDICAID ==
--- NOTE | 2021-11-06 16:47 | XRAY Report ---
PROCEDURE: TMJ's-Temporal Mandibular Jts INDICATIONS: ARTHROPATHY OF R TMJ TECHNIQUE: 7 view(s) of the TMJ acquired. COMPARISON: None. FINDINGS: Bones: No fractures or dislocations. No suspicious bony lesions. Missing dentition. Soft tissues: No suspicious soft tissue calcifications. IMPRESSION: Exam is technically difficult. No dislocation or obvious erosion is identified. Consider further evaluation with CT or MRI. Reviewed by: Steve Bullard MD on 11/06/2021 4:45 PM PDT Approved by: Steve Bullard MD on 11/06/2021 4:45 PM PDT Station ID: [id number]
== END 2021-11-06 13:11 | disposition home or self-care (01) ==
LOC: DI.N 13:10
PROVIDERS: ATTEND Internal Medicine
DX: M26.651 Arthropathy of right temporomandibular joint (principal)

== ENCOUNTER 2021-11-24 14:51 | Outpatient (CLI) | payer MEDICARE ==
--- NOTE | 2021-11-24 16:22 | CT Report ---
PROCEDURE: Maxillofacial CT without contrast INDICATIONS: ARTHROPATHY OF RIGHT TEMPOROMANIBULAR JOINT TECHNIQUE: Noncontrast 1.5 mm thick axial images acquired from the mandible through the frontal sinuses, with co joe and sagittal reformatting. For radiation dose reduction, the following was used: automated ex posure control, adjustment of mA and/or kV according to patient size. COMPARISON: None. FINDINGS: Image quality: Excellent. Bones and teeth: Orbital lopez are intact. Sinus lopez show no fracture or deformity. Nasal bones and septum are intact. Zygomatic arches are intact. Pterygoid plates are intact. Visualized porti ons of the skull base and auditory canals are intact. There is severe temporal mandibular joint space and narrowing with remodeling of both mandibular cond yles, left greater than right. The patient is edentulous Sinuses: Complete right maxillary sinus opacification without osseous wall thickening or expansion. T here is also complete opacification of the left sphenoid with osseous wall thickening and widening of the sphenoethmoidal recess with a polypoid soft tissue. Additional partial opacification of the righ t sphenoid sinus are present with wall thickening. Soft tissues: No edema, masses, or fluid collections. No enlarged lymph nodes. No soft tissue lace rations or debris. Bilateral intraocular lens replacements noted. Vascular: Visualized vascular structures appear normal in the absence of contrast. Bony vascular fo ramina and canals are intact. IMPRESSION: 1. Bilateral temporal mandibular joint osteoarthritis, left greater than right. 2. Probable left sphenoid sinonasal polyp extending into the ethmoid sinus and nasal vault 3. 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
== END 2021-11-24 14:52 | disposition home or self-care (01) ==
LOC: DI 14:51
PROVIDERS: ATTEND Internal Medicine
DX: M19.09 Primary osteoarthritis, other specified site (principal); J32.0 Chronic maxillary sinusitis; J32.3 Chronic sphenoidal sinusitis

== ENCOUNTER 2022-01-18 15:06 | Emergency (ER) | payer MEDICARE ==
--- NOTE | 2022-01-18 15:19 | ED Physician Documentation ---
PD HPI ABD PAIN - Stated complaint Stated Complaint: ABD PAIN - Chief complaint Chief Complaint: Abd Pain - History obtained from History obtained from: Patient - History of Present Illness Timing - onset: How many days ago (2) Timing - duration: Days (2) Timing - details: Gradual onset, Still present, Waxing and waning Quality: Cramping, Aching, Pain Location: Periumbilical Radiation: No: Lower back, Left flank, Right flank Improved by: Laying still Worsened by: Eating, Moving Associated symptoms: Nausea, Loss of appetite. No: Fever, Vomiting, Diarrhea, Constipation, Dysuria, Near syncope / syncope Similar symptoms before: Has not had sx before Recently seen: Not recently seen Review of Systems Constitutional: denies: Fever, Chills Nose: denies: Rhinorrhea / runny nose, Congestion Throat: denies: Sore throat Cardiac: denies: Chest pain / pressure Respiratory: denies: Cough GI: reports: Abdominal Pain (she is having pain around area of her kidney transplant and is concerned.), Nausea. denies: Vomiting, Constipation, Diarrhea : denies: Dysuria, Frequency Neurologic: denies: Generalized weakness, Near syncope PD PAST MEDICAL HISTORY - Past Medical History Cardiovascular: Hypertension, High cholesterol : Renal insuffiency (kidney transplant many years ago) Musculoskeletal: Gout - Past Surgical History Past Surgical History: Yes - Present Medications Home Medications: Ambulatory Orders Medication Instructions Recorded Confirmed Aspirin [Aspir 81] 81 mg PO DAILY 03/06/13 03/04/18 Mycophenolate Sodium [Myfortic] 180 mg PO BID 03/06/13 03/04/18 allopurinoL [Allopurinol] 300 mg PO DAILY 12/13/14 03/04/18 hydrALAZINE [Apresoline] 50 mg PO BID 12/26/15 03/04/18 Carvedilol [Coreg] 25 mg PO DAILY 10/07/17 03/04/18 Losartan [Cozaar] 100 mg PO DAILY 10/07/17 03/04/18 Pravastatin [Pravachol] 20 mg PO DAILY 10/07/17 03/04/18 PredniSONE [PredniSONE INTENSOL] 5 mg PO DAILY 10/07/17 03/04/18 Tacrolimus [Prograf] 5 mg ORAL BID 10/07/17 03/04/18 Docusate Sodium 100 mg PO DAILY #30 capsule 06/22/18 Nitroglycerin 0.4 mg SL ONCE PRN #1 bottle 06/22/18 Amoxicillin 500 mg PO BID #13 capsule 09/12/18 HYDROcod/ACETAM 5/325 [[place]he[place] 5/325] 1 ea PO Q6H PRN #10 tablet 01/18/22 Ondansetron Odt [Zofran] 4 mg TL Q6H PRN #10 tablet 01/18/22 - Allergies Allergies/Adverse Reactions: Allergies Allergy/AdvReac Type Severity Reaction Status Date / Time Sulfa (Sulfonamide Allergy Mild Rash Verified 01/18/22 15:14 Antibiotics) - Social History Does the pt smoke?: No Smoking Status: Never smoker Does the pt drink ETOH?: No Does the pt have substance abuse?: No - Immunizations Immunizations are current?: Yes - POLST Patient has POLST: No POLST Status: Full Code PD ED PE NORMAL - Vitals Vital signs reviewed: Yes - General General: Alert and oriented X 3, Well developed/nourished - HEENT HEENT: Pharynx benign - Neck Neck: Supple, no meningeal sign, No adenopathy - Cardiac Cardiac: RRR, No murmur - Respiratory Respiratory: Clear bilaterally - Abdomen Abdomen: Normal bowel sounds, Soft, Non distended, No organomegaly, Other (tender mid abd and RUQ without guarding nor percussion/rebound. ) - Female Female : Deferred - Rectal Rectal: Deferred - Back Back: No CVA TTP - Derm Derm: Normal color, Warm and dry - Extremities Extremities: No edema, No calf tenderness / cord - Neuro Neuro: Alert and oriented X 3, No motor deficit, No sensory deficit Results - Vitals Vitals: Vital Signs - 24 hr 01/18/22 01/18/22 01/18/22 15:14 15:41 17:03 Temperature 36.7 C Heart Rate 80 69 73 Respiratory 16 17 16 Rate Blood Pressure 133/60 H 154/76 H 114/56 L O2 Saturation 96 99 94 Oxygen O2 Source Room air - Labs Labs: Laboratory Tests 01/18/22 01/18/22 01/18/22 15:23 15:34 15:34 WBC 8.6 RBC 4.55 Hgb 14.2 Hct 43.8 MCV 96.3 MCH 31.2 H MCHC 32.4 RDW 13.2 Plt Count 203 MPV 9.9 Neut # (Auto) 7.7 H Lymph # (Auto) 0.5 L [place] # (Auto) 0.3 Eos # (Auto) 0.0 Baso # (Auto) 0.0 Absolute Nucleated RBC 0.00 Nucleated RBC % 0.0 Sodium 140 Potassium 3.5 Chloride 106 Carbon Dioxide 25 Anion Gap 9.0 BUN 19 Creatinine 1.1 H Estimated GFR (MDRD) 48 L Glucose 183 H Calcium 8.7 Total Bilirubin 0.5 AST 16 ALT 12 Alkaline Phosphatase 50 C-Reactive Protein Total Protein 6.6 L Albumin 3.7 Globulin 2.9 Albumin/Globulin Ratio 1.3 Lipase 38 Urine Color YELLOW Urine Clarity HAZY Urine pH 6.0 Ur Specific [place] >=1.030 H Urine Protein 30 H Urine Glucose (UA) NEGATIVE Urine Ketones TRACE Urine Occult Blood NEGATIVE Urine Nitrite NEGATIVE Urine Bilirubin NEGATIVE Urine Urobilinogen 0.2 (NORMAL) Ur Leukocyte Esterase SMALL H Urine RBC 0-5 Urine WBC >25 H Urine WBC Clumps PRESENT Ur Squamous Epith Cells MANY Squamous H Urine Bacteria Many H Ur Microscopic Review INDICATED Urine Culture Comments NOT INDICATED 01/18/22 15:34 WBC RBC Hgb Hct MCV MCH MCHC RDW Plt Count MPV Neut # (Auto) Lymph # (Auto) Green # (Auto) Eos # (Auto) Baso # (Auto) Absolute Nucleated RBC Nucleated RBC % Sodium Potassium Chloride Carbon Dioxide Anion Gap BUN Creatinine Estimated GFR (MDRD) Glucose Calcium Total Bilirubin AST ALT Alkaline Phosphatase C-Reactive Protein < 1.0 Total Protein Albumin Globulin Albumin/Globulin Ratio Lipase Urine Color Urine Clarity Urine pH Ur Specific [place] Urine Protein Urine Glucose (UA) Urine Ketones Urine Occult Blood Urine Nitrite Urine Bilirubin Urine Urobilinogen Ur Leukocyte Esterase Urine RBC Urine WBC Urine WBC Clumps Ur Squamous Epith Cells Urine Bacteria Ur Microscopic Review Urine Culture Comments - Rads (name of study) abd/pelvic CT Radiology: Prelim report reviewed, See rad report PD MEDICAL DECISION MAKING - ED course Complexity details: re-evaluated patient (unclear cause of the pain. NO obvious findings on labs/ct), considered differential, d/w patient Departure - Departure Disposition: 01 Home, Self Care Clinical Impression: Status post kidney transplant Abdominal pain Qualifiers: Abdominal location: generalized Qualified Code(s): R10.84 - Generalized abdominal pain Condition: Stable Record reviewed to determine appropriate education?: Yes Instructions: ED Abdominal Pain Female Non-Specific Abdominal Pain, ED Gastritis Prescriptions: HYDROcod/ACETAM 5/325 [Brashear 5/325] 1 ea PO Q6H PRN #10 tablet PRN Reason: Pain Ondansetron Odt [Zofran] 4 mg TL Q6H PRN #10 tablet PRN Reason: Nausea / Vomiting Comments: Your kidney function is your kidney function is at its baseline with a creatinine of 1.1. No signs of kidney infection or kidney stones. Your CT scan and blood tests otherwise do not show any acute abnormality. Normal gallbladder, pancreas, intestines. You have some diverticula but no signs of diverticulitis. I would assume your stomach pain relates then to an irritation of the stomach (gastritis). I would suggest taking famotidine/Pepcid acid reducing medicine daily for the next couple of weeks. Also antacid such as Maalox or Mylanta 5 to 10 mL as needed for abdominal discomfort and bloating. Add Tylenol if needed for pain every 4-6 hours. If you do need prescription medicine for nausea, I did transmitted a prescription of ondansetron/Zofran to use if needed for nausea. Additionally hydrocodone pain medicine if needed for pain unrelieved by the Tylenol. I would anticipate improvement over the next couple of days. Return if worsening or other symptoms develop. I transmitted your prescriptions to [facility] pharmacy if you were to need them for nausea or pain. I am prescribing a short course of narcotic pain medication for you. These are potentially dangerous and addictive medications that should be used carefully. These medications may constipate you. Take an [id number] stool softener such as docusate twice daily with plenty of water while taking these medications. If you go 24 hours without a bowel movement, take [id number] MiraLAX, per package instructions. Do not drink or drive while taking these medications. If you received narcotic or sedating medications while in the emergency department do not drive for 24 hours. Store this medication in a safe, secure place and out of reach of children. It is a violation of federal law to give or sell this medication to another person or to use in a manner other than prescribed. The ED will not refill narcotic prescriptions, including prescriptions lost or stolen. You can dispose of unwanted medications at the [facility]'s office or at several pharmacies such as [facility]. Discharge Date/Time: 01/18/22 17:03
[2022-01-18 15:41] LABS: BASOPHILS % (AUTO) 0.3 %; EOSINOPHILS % (AUTO) 0.5 %; HCT - HEMATOCRIT 43.8 % (37.0-47.0); HGB - HEMOGLOBIN 14.2 g/dL (12.0-16.0); LYMPHOCYTES # (AUTO) 0.5 10^3/uL (1.5-3.5); LYMPHOCYTES % (AUTO) 5.7 %; MEAN CORPUSCULAR HEMOGLOBIN 31.2 pg (27.0-31.0); MEAN CORPUSCULAR HGB CONC 32.4 g/dL (32.0-36.0); MEAN CORPUSCULAR VOLUME 96.3 fL (81.0-99.0); MEAN PLATELET VOLUME 9.9 fL (7.9-10.8); MONOCYTES # (AUTO) 0.3 10^3/uL (0.0-1.0); MONOCYTES % (AUTO) 3.4 %; NEUTROPHILS # (AUTO) 7.7 10^3/uL (1.5-6.6); NEUTROPHILS % (AUTO) 89.8 %; PLT - PLATELET COUNT 203 10^3/uL (130-450); RED BLOOD COUNT 4.55 10^6/uL (4.20-5.40); RED CELL DISTRIBUTION WIDTH 13.2 % (12.0-15.0); WHITE BLOOD COUNT 8.6 x10^3/uL (4.8-10.8)
[2022-01-18 15:43] LABS: BILIRUBIN,URINE NEGATIVE (NEGATIVE); GLUCOSE, URINE (UA) NEGATIVE (NEGATIVE); KETONES,URINE (UA) TRACE mg/dL (NEGATIVE); LEUKOCYTE ESTERASE, URINE SMALL (NEGATIVE); NITRITE,URINE NEGATIVE (NEGATIVE); OCCULT BLOOD,URINE NEGATIVE (NEGATIVE); PROTEIN,URINE 30 mg/dL (NEGATIVE); UROBILINOGEN,URINE 0.2 (NORMAL) E.U./dL (NORMAL)
[2022-01-18 15:48] LABS: CLARITY,URINE HAZY (CLEAR)
[2022-01-18] MEDS ORDERED: SODIUM CHLORIDE 0.9% 1,000 ML IV STA (15:49)
[2022-01-18] MEDS ORDERED: FAMOTIDINE 20 MG/2 ML VIAL IVP STA (15:51)
[2022-01-18] MEDS ORDERED: HYDROmorphone 1 MG/ML CARPUJECT IVP STA (15:51)
[2022-01-18] MEDS ORDERED: ONDANSETRON 4 MG/2 ML VIAL IVP STA (15:51)
[2022-01-18 15:54] LABS: ALBUMIN 3.7 g/dL (3.2-5.5); ALBUMIN/GLOBULIN RATIO 1.3 (1.0-2.2); BILIRUBIN,TOTAL 0.5 mg/dL (0.2-1.0); CALCIUM 8.7 mg/dL (8.5-10.3); CREATININE 1.1 mg/dL (0.4-1.0); POTASSIUM 3.5 mmol/L (3.5-5.0); TOTAL PROTEIN 6.6 g/dL (6.7-8.2)
[2022-01-18 16:20] LABS: BACTERIA,URINE Many /HPF (None Seen); RBC,URINE 0-5 /HPF (0-5); SQUAMOUS EPITHELIAL CELL,UR MANY Squamous (<= Few); WBC CLUMPS,URINE PRESENT; WBC,URINE >25 /HPF (0-5)
--- NOTE | 2022-01-18 16:26 | CT Report ---
PROCEDURE: Abdomen/Pelvis WO INDICATIONS: upper abd pain for 2 days. TECHNIQUE: Noncontrast 5 mm thick sections acquired from the diaphragms to the symphysis. 5 mm coronal and sagi ttal reformats were then performed. For radiation dose reduction, the following was used: automated exposure control, adjustment of mA and/or kV according to patient size. COMPARISON: None. FINDINGS: Image quality: Excellent. ABDOMEN: Lung bases: Lung bases are clear. Heart size is normal. Atherosclerotic calcifications noted in the visualized left coronary vasculature. Solid organs: Liver and spleen are normal in size. Hepatic cysts. Gallbladder is within normal limit s. Pancreas is normal in contours. No adrenal nodules. Kidneys are atrophied bilaterally. Multiple renal cortical calcifications. Left renal cysts. Transplant kidney in the right pelvis. Peritoneum and bowel: Small hiatal hernia. Unenhanced bowel loops demonstrate normal wall thickness a nd caliber. Colonic diverticuli without evidence of diverticulitis. No free fluid or air. Appendix is normal. Nodes and vessels: No retroperitoneal or mesenteric adenopathy by size criteria. Aorta and inferior vena cava are normal in caliber. Scattered atherosclerotic calcifications are noted in the abdominal and pelvic vasculature. Miscellaneous: No ventral hernias. PELVIS: Genitourinary: Bladder wall thickness is normal. Miscellaneous: No inguinal hernias or adenopathy. Bones: No suspicious bony lesions. No vertebral body compression fractures. IMPRESSION: 1. No acute disease process. 2. Chronic diverticulosis without evidence of diverticulitis. 3. Bilateral renal atrophy with right pelvic renal transplant. Transplant kidney has normal noncontra st CT appearance. 4. No free fluid or free air. 5. No dilated loops of bowel. Reviewed by: Cuca Thompson MD, PhD on 01/18/2022 4:24 PM PDT Approved by: Cuca Thompson MD, PhD on 01/18/2022 4:24 PM PDT Station ID: [id number]
[2022-01-18] MEDS ORDERED: FAMOTIDINE 20 MG TABLET PO STA (16:49)
[2022-01-18] MEDS ORDERED: ACETAMINOPHEN 325 MG TABLET PO STA (16:49)
[2022-01-18] MEDS ORDERED: LIDOCAINE VISCOUS 2% 15 ML UDC MM STA (16:49)
[2022-01-18] MEDS ORDERED: MAG HYDROX/AL HYDROX/SIMETH 30 ML UDC PO STA (16:49)
[2022-01-18] MEDS ORDERED: ONDANSETRON ODT 4 MG TABLET TL STA (16:49)
[2022-01-18 17:03] VITALS: BP 114/56
== END 2022-01-18 17:03 | disposition home or self-care (01) ==
LOC: ED 15:06
DX: R10.84 Generalized abdominal pain (principal); I10 Essential (primary) hypertension
CPT/HCPCS: 36415; 74176; 80053; 81001; 83690; 85025; 86140; 99282; 99284; A9270; Q0162; 81003; 87086

== ENCOUNTER 2022-02-28 05:12 | Emergency (ER) | payer MEDICARE, MEDICAID ==
[2022-02-28 05:18] VITALS: BP 142/68
[2022-02-28 06:15] LABS: BASOPHILS % (AUTO) 0.2 %; EOSINOPHILS % (AUTO) 0.4 %; HCT - HEMATOCRIT 39.8 % (37.0-47.0); HGB - HEMOGLOBIN 13.1 g/dL (12.0-16.0); LYMPHOCYTES # (AUTO) 0.5 10^3/uL (1.5-3.5); LYMPHOCYTES % (AUTO) 10.1 %; MEAN CORPUSCULAR HEMOGLOBIN 31.1 pg (27.0-31.0); MEAN CORPUSCULAR HGB CONC 32.9 g/dL (32.0-36.0); MEAN CORPUSCULAR VOLUME 94.5 fL (81.0-99.0); MEAN PLATELET VOLUME 9.8 fL (7.9-10.8); MONOCYTES # (AUTO) 0.9 10^3/uL (0.0-1.0); MONOCYTES % (AUTO) 18.1 %; NEUTROPHILS # (AUTO) 3.6 10^3/uL (1.5-6.6); NEUTROPHILS % (AUTO) 70.6 %; PLT - PLATELET COUNT 156 10^3/uL (130-450); RED BLOOD COUNT 4.21 10^6/uL (4.20-5.40); RED CELL DISTRIBUTION WIDTH 13.2 % (12.0-15.0); WHITE BLOOD COUNT 5.1 x10^3/uL (4.8-10.8)
[2022-02-28 06:25] LABS: CALCIUM 8.8 mg/dL (8.5-10.3); CREATININE 0.8 mg/dL (0.4-1.0); POTASSIUM 3.7 mmol/L (3.5-5.0)
--- NOTE | 2022-02-28 06:35 | ED Physician Documentation ---
PD HPI URI - Stated complaint Stated Complaint: SOA - Chief complaint Chief Complaint: Resp - History obtained from History obtained from: Patient - Additional information Additional information: Patient is a 76-year-old female with history of kidney transplant presenting for evaluation of fever and dry cough. Her symptoms of been present for 2 days. She is tested positive for COVID at home for the last 2 days. She took Tylenol at midnight. She was concerned because it did not seem that her fever was going down and she was concerned as she is a transplant patient. Her cough has been nonproductive. She denies difficulty breathing. She denies known sick contacts. She has been vaccinated for COVID but has not received a booster. She denies chest pain, abdominal pain, vomiting, diarrhea or dysuria.She has been using Robitussin for cough with minimal improvement. Patient has a letter with her from her transplant team At the [facility] Stating that she should not receive paxlovid as it may interfere with her transplant medications. Review of Systems Constitutional: reports: Fever Cardiac: denies: Chest pain / pressure Respiratory: reports: Cough. denies: Dyspnea GI: denies: Abdominal Pain, Vomiting : denies: Dysuria Skin: denies: Rash Musculoskeletal: denies: Back pain Neurologic: reports: Generalized weakness PD PAST MEDICAL HISTORY - Past Medical History Past Medical History: Yes Cardiovascular: Hypertension, High cholesterol Respiratory: None Neuro: None Endocrine/Autoimmune: None GI: None HEALTH EDUCATION DIRECTOR: None : Renal insuffiency, Other HEENT: None Psych: None Musculoskeletal: Gout Derm: None Other Past Medical History: KIDNEY TRANSPLANT ([facility]) X 2011... - Past Surgical History Past Surgical History: Yes General: Other - Present Medications Home Medications: Ambulatory Orders Medication Instructions Recorded Confirmed Aspirin [Aspir 81] 81 mg PO DAILY 03/06/13 03/04/18 Mycophenolate Sodium [Myfortic] 180 mg PO BID 03/06/13 03/04/18 allopurinoL [Allopurinol] 300 mg PO DAILY 12/13/14 03/04/18 hydrALAZINE [Apresoline] 50 mg PO BID 12/26/15 03/04/18 Carvedilol [Coreg] 25 mg PO DAILY 10/07/17 03/04/18 Losartan [Cozaar] 100 mg PO DAILY 10/07/17 03/04/18 Pravastatin [Pravachol] 20 mg PO DAILY 10/07/17 03/04/18 PredniSONE [PredniSONE INTENSOL] 5 mg PO DAILY 10/07/17 03/04/18 Tacrolimus [Prograf] 5 mg ORAL BID 10/07/17 03/04/18 Docusate Sodium 100 mg PO DAILY #30 capsule 06/22/18 Nitroglycerin 0.4 mg SL ONCE PRN #1 bottle 06/22/18 Amoxicillin 500 mg PO BID #13 capsule 09/12/18 HYDROcod/ACETAM 5/325 [[place] 5/325] 1 ea PO Q6H PRN #10 tablet 01/18/22 Ondansetron Odt [Zofran] 4 mg TL Q6H PRN #10 tablet 01/18/22 - Allergies Allergies/Adverse Reactions: Allergies Allergy/AdvReac Type Severity Reaction Status Date / Time Sulfa (Sulfonamide Allergy Mild Rash Verified 02/28/22 05:18 Antibiotics) - Social History Does the pt smoke?: No Smoking Status: Never smoker Does the pt drink ETOH?: No Does the pt have substance abuse?: No - Immunizations Immunizations are current?: Yes - POLST Patient has POLST: No POLST Status: Full Code PD ED PE NORMAL - General General: Alert and oriented X 3, No acute distress, Well developed/nourished - HEENT HEENT: Atraumatic, Moist mucous membranes - Neck Neck: Supple, no meningeal sign - Cardiac Cardiac: RRR, No murmur, Strong equal pulses - Respiratory Respiratory: No respiratory distress, Clear bilaterally - Abdomen Abdomen: Normal bowel sounds, Soft, Non tender, Non distended - Back Back: No CVA TTP - Derm Derm: Warm and dry - Neuro Neuro: Normal speech Results - Vitals Vitals: Vital Signs - 24 hr 02/28/22 02/28/22 05:15 05:21 Temperature 37.3 C Heart Rate 70 63 Respiratory 17 20 Rate Blood Pressure 142/68 H O2 Saturation 95 97 Oxygen O2 Source Room air - Labs Labs: Laboratory Tests 02/28/22 02/28/22 06:03 06:03 WBC 5.1 RBC 4.21 Hgb 13.1 Hct 39.8 MCV 94.5 MCH 31.1 H MCHC 32.9 RDW 13.2 Plt Count 156 MPV 9.8 Neut # (Auto) 3.6 Lymph # (Auto) 0.5 L [place] # (Auto) 0.9 Eos # (Auto) 0.0 Baso # (Auto) 0.0 Absolute Nucleated RBC 0.00 Nucleated RBC % 0.0 Sodium 138 Potassium 3.7 Chloride 109 Carbon Dioxide 21 Anion Gap 8.0 BUN 12 Creatinine 0.8 Estimated GFR (MDRD) 69 L Glucose 108 H Calcium 8.8 PD MEDICAL DECISION MAKING - ED course Complexity details: reviewed results, d/w patient ED course: Pt who recently tested positive for COVID presenting for evaluation of fever and nonproductive cough. She is afebrile here. Screening labs are unremarkable. She does not appear septic. Suspect that her fever is truly from COVID and not from another infection as she lacks other symptoms To suggest alternate source. She additionally is not a candidate for Paxlovid Her transplant team. Her chest x-ray does not show signs of pneumonia. Her vital signs are stable and she does not require oxygen. Discussed need for continued supportive care. She is advised on return precautions. Departure - Departure Disposition: 01 Home, Self Care Clinical Impression: COVID-19 Condition: Stable Instructions: COVID-19 [facility] Comments: You have recently tested positive for COVID. Your labs today were reassuring with no signs of electrolyte abnormality or an abnormal white count. Your vital signs were also stable and your fever has improved here with no fever while in the emergency department. Chest x-ray is clear and does not show signs of pneumonia. Please continue quarantine per CDC guidelines and stay hydrated. You could also use acetaminophen for fevers or pains. If you develop any worsening shortness of breath please return to the emergency department.
--- NOTE | 2022-02-28 09:57 | XRAY Report ---
PROCEDURE: Chest 1 View X-Ray INDICATIONS: cough/covid TECHNIQUE: One view of the chest was acquired. COMPARISON: Chest x-ray one view, 04/27/2019. FINDINGS: Surgical changes and devices: None. Lungs and pleura: Mild interstitial prominence. Probable calcified nodule in the right upper lung zo ne. No focal consolidation. No pleural effusions or pneumothorax Mediastinum: Mediastinal contours appear normal. Heart size is mildly increased. Calcified plaques in aortic valve. Bones and chest wall: No suspicious bony lesions. Overlying soft tissues appear unremarkable. IMPRESSION: 1. Mild cardiomegaly. 2. Probable calcified nodule in the right upper lung zone 3. Mild diffuse interstitial prominence. No focal consolidation or pleural effusion. No significant discrepancy with the preliminary interpretation. Reviewed by: Darrin De Jesus MD on 02/28/2022 9:56 AM PDT Approved by: Darrin De Jesus MD on 02/28/2022 9:56 AM PDT Station ID: [id number]
== END 2022-02-28 06:50 | disposition home or self-care (01) ==
LOC: EDUNIT# → ED 05:12
DX: U07.1 COVID-19 (principal); Z94.0 Kidney transplant status
CPT/HCPCS: 36415; 80048; 85025; 99282; 99284